=== PATIENT | female | born 1990 | race American Indian/Alaskan Native ===

== ENCOUNTER 2016-07-01 19:41 | Emergency (ER) | payer MEDICAID, OTHER ==
[2016-07-01 21:29] LABS: Hematocrit 38.7 % (30.3-42.9); Hemoglobin 12.5 gm/dl (10.1-14.3); Mean Corpuscular HGB Conc 32 % (30-34); Mean Corpuscular Volume 76 fl (79-97); Platelet Count 224 K/mm3 (140-440); White Blood Count 14.3 K/mm3 (4.5-11.0)
[2016-07-01 21:30] LABS: Mean Corpuscular Hemoglobin 25 pg (28-32)
[2016-07-01 21:45] LABS: Alanine Aminotransferase 9 units/L (7-56); Albumin 4.3 g/dL (3.9-5); Albumin/Globulin Ratio 1.7 %; Alkaline Phosphatase 93 units/L (35-129); Bilirubin,Total 0.3 mg/dL (0.1-1.2); Blood Urea Nitrogen 9 mg/dL (7-17); Carbon Dioxide 23 mmol/L (22-30); Chloride 99.6 mmol/L (98-107); Glucose 114 mg/dL (65-100); Lipase 43 units/L (13-60); Potassium 3.2 mmol/L (3.6-5.0); Sodium 138 mmol/L (137-145); Total Protein 6.8 g/dL (6.3-8.2)
[2016-07-01 21:46] LABS: Anion Gap 19 mmol/L
[2016-07-01 22:05] LABS: Anisocytosis 1+; Basophils % (Manual) 0 % (0.0-1.8); Blastocytes % (Manual) 0 %; Eosinophils % (Manual) 0 % (0.0-4.3); Total Cells Counted Percent 0
[2016-07-01 22:06] LABS: Elliptocytes 1+; Microcytosis 1+; Poikilocytosis Few
[2016-07-01 22:07] LABS: Diff Status Complete; Platelet Estimate Consistent w Auto
[2016-07-01 22:36] LABS: Bilirubin,Urine NEG (Negative); Blood,Urine NEG (Negative); Ketones,Urine TR mg/dL (Negative); Leukocyte Esterase,Urine MOD (Negative); Nitrite,Urine NEG (Negative); Protein,Urine <15 mg/dL mg/dL (Negative); Urobilinogen,Urine < 2.0 mg/dL (<2.0)
[2016-07-02] MEDS ORDERED: TYLENOL ONE (01:08)
[2016-07-02] MEDS ORDERED: TYLENOL PO ONE (01:09)
--- NOTE | 2016-07-02 07:39 | Emergency Department Report ---
ED Abdominal Pain HPI - General Chief Complaint: Abdominal Pain Stated Complaint: VOMITING,ABD PAIN, DIZZINESS,HEADACHE Time Seen by Provider: 07/02/16 07:37 Source: patient Mode of arrival: Ambulatory Limitations: No Limitations - History of Present Illness Initial Comments: She complains of left lower quadrant/pelvic pain on the left side for the past approximately one week. She states he's had her "normal white vaginal discharge ". 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 She does not give a history of PID. She denies fever chills nausea or vomiting. She denies diarrhea or change in her bowel movements or problems urinating. MD Complaint: abdominal pain -: Gradual Location: LLQ Radiation: none Severity: moderate Quality: cramping Consistency: intermittent Improves With: nothing Worsens With: other ("pressure on area") - Related Data Home Medications Medication Instructions Recorded Confirmed Last Taken Acetaminophen [Tylenol] 650 mg PO Q6HR PRN 11/09/14 11/14/14 1 Day Ago Ibuprofen [Motrin] 600 mg PO Q8H PRN 11/09/14 11/14/14 11/10/14 Previous Rx's Medication Instructions Recorded Last Taken Type Butalb/Acetamin/Caff 50-325-40 2 tab PO Q8H PRN #30 tablet 11/10/14 Unknown Rx [Fioricet] SUMAtriptan SUCCINATE [Imitrex] 100 mg PO DAILY PRN #9 tablet NS 11/10/14 Rx Topiramate [Topamax TAB] 25 mg PO BID #120 tablet NS 11/10/14 Unknown Rx NIFEdipine XL [Procardia Xl] 30 mg PO QDAY #30 tablet 11/14/14 Unknown Rx Doxycycline [Vibramycin CAP] 100 mg PO Q12HR #20 capsule 07/02/16 Unknown Rx traMADol [Ultram] 50 mg PO Q6HR PRN #14 tablet 07/02/16 Unknown Rx Allergies Allergy/AdvReac Type Severity Reaction Status Date / Time No Known Allergies Allergy Verified 10/16/14 16:25 ED Review of Systems ROS: Stated complaint: VOMITING,ABD PAIN, DIZZINESS,HEADACHE Other details as noted in HPI Constitutional: denies: chills, fever Eyes: denies: eye pain, eye discharge, vision change ENT: denies: ear pain, throat pain Respiratory: denies: cough, shortness of breath, wheezing Cardiovascular: denies: chest pain, palpitations Endocrine: no symptoms reported Gastrointestinal: abdominal pain. denies: nausea, diarrhea Genitourinary: discharge. denies: urgency, dysuria Musculoskeletal: denies: back pain, joint swelling, arthralgia Skin: denies: rash, lesions Neurological: denies: headache, weakness, paresthesias Psychiatric: denies: anxiety, depression Hematological/Lymphatic: denies: easy bleeding, easy bruising ED Past Medical Hx - Past Medical History Previous Medical History?: Yes Hx Hypertension: Yes (HTN during ) Hx Heart Attack/AMI: No Hx Congestive Heart Failure: No Hx Diabetes: No Hx Deep Vein Thrombosis: No Hx Renal Disease: No Hx Sickle Cell Disease: No Hx Seizures: No Hx Asthma: No Hx COPD: No Hx HIV: No - Surgical History Past Surgical History?: No - Social History Smoking Status: Never Smoker Substance Use Type: None - Medications Home Medications: Home Medications Medication Instructions Recorded Confirmed Last Taken Type Acetaminophen [Tylenol] 650 mg PO Q6HR PRN 11/09/14 11/14/14 1 Day Ago History Ibuprofen [Motrin] 600 mg PO Q8H PRN 11/09/14 11/14/14 11/10/14 History Butalb/Acetamin/Caff 50-325-40 2 tab PO Q8H PRN #30 tablet 11/10/14 11/14/14 Unknown Rx [Fioricet] SUMAtriptan SUCCINATE [Imitrex] 100 mg PO DAILY PRN #9 tablet NS 11/10/1411/10/14 Rx Topiramate [Topamax TAB] 25 mg PO BID #120 tablet NS 11/10/14 11/14/14 Unknown Rx NIFEdipine XL [Procardia Xl] 30 mg PO QDAY #30 tablet 11/14/14 Unknown Rx Doxycycline [Vibramycin CAP] 100 mg PO Q12HR #20 capsule 07/02/16 Unknown Rx traMADol [Ultram] 50 mg PO Q6HR PRN #14 tablet 07/02/16 Unknown Rx ED Physical Exam - General Limitations: No Limitations General appearance: alert, in no apparent distress - Head Head exam: Present: atraumatic, normocephalic - Eye Eye exam: Present: normal appearance. Absent: scleral icterus - ENT ENT exam: Present: normal exam, mucous membranes moist - Neck Neck exam: Present: normal inspection. Absent: tenderness, meningismus - Respiratory Respiratory exam: Present: normal lung sounds bilaterally. Absent: respiratory distress - Cardiovascular Cardiovascular Exam: Present: regular rate, normal rhythm. Absent: systolic murmur, diastolic murmur, rubs, gallop - GI/Abdominal GI/Abdominal exam: Present: soft, tenderness (mild discomfort to deep palpation in the left lower quadrant/pelvic region), normal bowel sounds. Absent: distended, guarding, rebound, rigid - Rectal Rectal exam: Present: deferred - External exam: Present: normal external exam Speculum exam: Present: vaginal discharge, cervical discharge Bi-manual exam: Present: adnexal tenderness (mild on the left). Absent: cervical motion tendernes, adnexal mass, uterine enlargement, uterine tenderness - Extremities Exam Extremities exam: Present: normal inspection, normal capillary refill - Back Exam Back exam: Present: normal inspection. Absent: CVA tenderness (R), CVA tenderness (L) - Neurological Exam Neurological exam: Present: alert, oriented X3, CN II-XII intact. Absent: motor sensory deficit - Psychiatric Psychiatric exam: Present: normal affect, normal mood - Skin Skin exam: Present: warm, dry, intact, normal color. Absent: rash ED Course Vital Signs 07/01/16 07/02/16 07/02/16 20:40 00:39 01:12 Temperature 100.3 F H 99.1 F Pulse Rate 93 H 102 H Respiratory 18 18 18 Rate Blood Pressure 109/75 Blood Pressure 153/70 [Right] O2 Sat by Pulse 100 100 Oximetry 07/02/16 07/02/16 07/02/16 04:39 07:42 07:49 Temperature 98.2 F Pulse Rate 110 H 93 H Respiratory 18 18 18 Rate Blood Pressure 128/72 Blood Pressure 117/93 [Right] O2 Sat by Pulse 100 80 L 99 Oximetry 07/02/16 07/02/16 08:00 10:35 Temperature Pulse Rate Respiratory Rate Blood Pressure 118/74 110/70 Blood Pressure [Right] O2 Sat by Pulse 100 Oximetry ED Medical Decision Making - Lab Data Result diagrams: 07/01/16 21:12 07/01/16 21:12 Laboratory Results - last 24 hr 07/01/16 07/01/16 07/01/16 21:12 21:12 22:02 WBC 14.3 H RBC 5.10 H Hgb 12.5 Hct 38.7 MCV 76 L MCH 25 L MCHC 32 RDW 14.0 Plt Count 224 Add Manual Diff Complete Total Counted 100 Seg Neutrophils % Scalp Treatment Operator Seg Neuts % (Manual) 84.0 H Band Neutrophils % 10.0 Lymphocytes % (Manual) 6.0 L Reactive Lymphs % (Man) 0 Monocytes % (Manual) 0 Eosinophils % (Manual) 0 Basophils % (Manual) 0 Metamyelocytes % 0 Myelocytes % 0 Promyelocytes % 0 Blast Cells % 0 Nucleated RBC % Not Reportable Seg Neutrophils # Man 12.0 H Band Neutrophils # 1.4 Lymphocytes # (Manual) 0.9 L Abs React Lymphs (Man) 0.0 Monocytes # (Manual) 0.0 Eosinophils # (Manual) 0.0 Basophils # (Manual) 0.0 Metamyelocytes # 0.0 Myelocytes # 0.0 Promyelocytes # 0.0 Blast Cells # 0.0 WBC Morphology Not Reportable Hypersegmented Neuts Not Reportable Hyposegmented Neuts Not Reportable Hypogranular Neuts Not Reportable Smudge Cells Not Reportable Toxic Granulation Not Reportable Toxic Vacuolation Not Reportable Dohle Bodies Not Reportable Pelger-Huet Anomaly Not Reportable Tanesha Rods Not Reportable Platelet Estimate Consistent w auto Clumped Platelets Not Reportable Plt Clumps, EDTA Not Reportable Large Platelets Not Reportable Giant Platelets Not Reportable Platelet Satelliting Not Reportable Plt Morphology Comment Not Reportable RBC Morphology Not Reportable Dimorphic RBCs Not Reportable Polychromasia Not Reportable Hypochromasia Not Reportable Poikilocytosis Few Anisocytosis 1+ Microcytosis 1+ Macrocytosis Not Reportable Spherocytes Not Reportable Pappenheimer Bodies Not Reportable Sickle Cells Not Reportable Target Cells Not Reportable Tear Drop Cells Not Reportable Ovalocytes Not Reportable Helmet Cells Not Reportable Quick-[place] Bodies Not Reportable [place] Rings Not Reportable [place] Cells Not Reportable Bite Cells Not Reportable Crenated Cell Not Reportable Elliptocytes 1+ Acanthocytes (Spur) Not Reportable Rouleaux Not Reportable Hemoglobin C Crystals Not Reportable Schistocytes Not Reportable Malaria parasites Not Reportable Adin Bodies Not Reportable Hem Pathologist Commnt No Sodium 138 Potassium 3.2 L Chloride 99.6 Carbon Dioxide 23 Anion Gap 19 BUN 9 Creatinine 0.5 L Estimated GFR > 60 BUN/Creatinine Ratio 18.00 Glucose 114 H Calcium 9.0 Total Bilirubin 0.3 AST 14 ALT 9 Alkaline Phosphatase 93 Total Protein 6.8 Albumin 4.3 Albumin/Globulin Ratio 1.7 Lipase 43 Urine Color Yellow Urine Turbidity Clear Urine pH 7.0 Ur Specific [place] 1.008 Urine Protein <15 mg/dl Urine Glucose (UA) Neg Urine Ketones Tr Urine Blood Neg Urine Nitrite Neg Urine Bilirubin Neg Urine Urobilinogen < 2.0 Ur Leukocyte Esterase Mod Urine WBC (Auto) 4.0 Urine RBC (Auto) 1.0 U Epithel Cells (Auto) 8.0 Urine HCG, Qual Negative - Radiology Data Radiology results: report reviewed interpreted by me: Ultrasound test without pelvic pathology seen Critical care attestation.: If time is entered above; I have spent that time in minutes in the direct care of this critically ill patient, excluding procedure time. ED Disposition Clinical Impression: PID (acute pelvic inflammatory disease) Disposition: DISCHARGED TO HOME OR SELFCARE Is pt being admited?: No Does the pt Need Aspirin: No Condition: Stable Instructions: Abdominal Pain (ED), Pelvic Inflammatory Disease (ED) Additional Instructions: Have appear to have a pelvic infection. However if your symptoms worsen or you develop fever or chills he should return to the emergency department. Otherwise Rx as directed and follow-up with a rheumatologist. Prescriptions: Doxycycline [Vibramycin CAP] 100 mg PO Q12HR #20 capsule traMADol [Ultram] 50 mg PO Q6HR PRN #14 tablet PRN Reason: Pain Referrals: PRIMARY MD MAGALI [Primary Care Provider] - 3-5 Days BECKA GLORIA MD [Staff Physician] - 24 Hours Time of Disposition: 12:17
[2016-07-02] MEDS ORDERED: NACL 0.9% 1000 ML 1,000 ML IV ONE (07:49)
[2016-07-02] MEDS ORDERED: ROCEPHIN/NS 1 GM/50 ML 50 ML IV ONE (07:49)
[2016-07-02] MEDS ORDERED: TORADOL IV ONE ×2 (07:52→10:25)
--- NOTE | 2016-07-02 09:36 | Ultrasound Report ---
ULTRASOUND PELVIC COMPLETE ULTRASOUND TRANSVAGINAL HISTORY: Left lower quadrant pain, left pelvic pain.. TECHNIQUE: Transabdominal and transvaginal ultrasound with color and spectral doppler interrogation. Longitudinal and transverse real-time images of the pelvis demonstrate that the uterus and ovaries are present and in a normal location. They are of normal echogenicity, contour and size. No pathologic changes in the adjacent tissues are noted. The endometrium measures 5.3 mm. Spectral Doppler demonstrates arterial flow to both ovaries. IMPRESSION: Unremarkable transabdominal and transvaginal pelvic ultrasounds.
[2016-07-02] MEDS ORDERED: TORADOL ONE (10:17)
[2016-07-02] MEDS ORDERED: ZITHROMAX PO ONE (10:28)
[2016-07-02] MEDS ORDERED: K-DUR PO ONE (10:44)
[2016-07-02] MEDS ORDERED: ZITHROMAX ONE (11:38)
[2016-07-02 12:48] VITALS: BP 120/89
== END 2016-07-02 12:48 | disposition home or self-care (01) ==
LOC: ED 19:41
DX: N73.0 Acute parametritis and pelvic cellulitis (principal)
CPT/HCPCS: 36415; 76830; 76856; 80053; 81001; 81025; 83690; 85007; 85025; 87210; 87591; 96365; 96375; 96376; 99285; J0696; J1885; J7030

== ENCOUNTER 2016-07-07 15:03 | Emergency (ER) | payer SELFPAY ==
--- NOTE | 2016-07-07 17:38 | Emergency Department Report ---
Chief Complaint: Abdominal Pain Stated Complaint: VAG BLEEDING/STOMACH BACK PAIN/VOMITING Time Seen by Provider: 07/07/16 17:35 - HPI History of Present Illness: Patient here reports that she was here on 07/01/2016 and diagnosed with PID. She is complaining or right flank and abdominal pain for approximately one week and that the pain is worse today. Denies any urinary burning frequency or urgency. She is complaining of vaginal bleeding since yesterday and says she used 5 pads and 5 tampons since today. Complaining nausea vomiting and diarrhea for a few days. She is complaining of feeling weak and dizzy. Denies any fever or chills. Pain to right flank is 10 out of 10. Last menstrual period was 05/20 2016 patient said that she doesn't think it's her. Because she doesn't usually bleeding this heavily with her period. - ROS Review of Systems: All systems are negative unless stated in HPI above. - Exam Vital Signs: Vital Signs 07/07/16 17:19 Temperature 98.0 F Pulse Rate 76 Respiratory 16 Rate Blood Pressure 114/80 O2 Sat by Pulse 100 Oximetry Physical Exam: General: This is a 25-year-old female well-nourished well-developed in no acute distress. CV: S1, S2. Regular rate and rhythm. Lungs: Clear to auscultate bilaterally, no rhonchi wheezes or rales MSE screening note: Focused history and physical exam performed. Due to findings the following was ordered:see mdm ED Medical Decision Making - Medical Decision Making Medical decision making: Patient seen by provider in triage area. Appropriate protocol activated and patient to main ED to be seen by physician. ED Disposition for MSE Condition: Stable Instructions: Abdominal Pain (ED)
[2016-07-07 19:00] LABS: Basophils % (Auto) 0.5 % (0.0-1.8); Eosinophils % (Auto) 0.4 % (0.0-4.3); Hemoglobin 12.8 gm/dl (10.1-14.3); Mean Corpuscular HGB Conc 32 % (30-34); Mean Corpuscular Volume 76 fl (79-97); Platelet Count 327 K/mm3 (140-440); Red Blood Count 5.27 M/mm3 (3.65-5.03); Red Cell Distribution Width 14.1 % (13.2-15.2); White Blood Count 9.9 K/mm3 (4.5-11.0)
[2016-07-07 19:03] LABS: Mean Corpuscular Hemoglobin 24 pg (28-32)
[2016-07-07 19:08] LABS: INR 1.07 (0.87-1.13)
[2016-07-07 19:14] LABS: Alanine Aminotransferase 12 units/L (7-56); Albumin 4.3 g/dL (3.9-5); Albumin/Globulin Ratio 1.3 %; Alkaline Phosphatase 94 units/L (35-129); Amylase 55 units/L (27-131); Anion Gap 16 mmol/L; Bilirubin,Total 0.3 mg/dL (0.1-1.2); Blood Urea Nitrogen 17 mg/dL (7-17); Calcium 9.3 mg/dL (8.4-10.2); Carbon Dioxide 27 mmol/L (22-30); Chloride 99.6 mmol/L (98-107); Glucose 90 mg/dL (65-100); Lipase 30 units/L (13-60); Sodium 139 mmol/L (137-145); Total Protein 7.7 g/dL (6.3-8.2)
[2016-07-07 19:16] LABS: Bilirubin,Direct < 0.2 mg/dL (0-0.2); Bilirubin,Indirect 0.1 mg/dL
--- NOTE | 2016-07-07 20:16 | Cat Scan Report ---
FINAL REPORT PROCEDURE: CT ABDOMEN PELVIS WO CON TECHNIQUE: Computerized axial tomography of the abdomen and pelvis was performed without intravenous contrast. This study is performed without intravascular contrast material and its sensitivity for abdominal and pelvic pathology, including neoplasms, inflammation, abscess, free fluid, thrombosis, arterial dissection and infarction, is reduced compared with a contrast enhanced study. HISTORY: Abdominal Pain COMPARISON: No prior studies are available for comparison. FINDINGS: Liver and spleen appear normal. Gallbladder and pancreas display no abnormalities. The adrenal glands and abdominal aorta are normal in size. No renal abnormality is seen. Normal appendix is seen. No adnexal masses are seen. There may be mild hemorrhagic free pelvic fluid and findings could be from recently ruptured cyst. Pelvic ultrasound may be useful in follow-up. There is moderate right-sided constipation. No small bowel dilation is seen. IMPRESSION: There may be mild hemorrhagic free fluid which could be from recently ruptured cyst. No adnexal masses are seen at this time. Correlation with pelvic ultrasound may be useful. Moderate right-sided constipation is seen.
[2016-07-07 20:58] LABS: Bilirubin,Urine NEG (Negative); Blood,Urine LG (Negative); Ketones,Urine NEG (Negative); Leukocyte Esterase,Urine NEG (Negative); Mucus,Urine 1+ /HPF; Nitrite,Urine NEG (Negative); Urobilinogen,Urine < 2.0 mg/dL (<2.0)
[2016-07-07 21:01] LABS: RBC,Urine > 182.0 /HPF (0.0-6.0)
[2016-07-08] MEDS ORDERED: NACL 0.9% 1000 ML 1,000 ML IV ONE (03:25)
[2016-07-08] MEDS ORDERED: MORPHINE IV ONE (03:25)
[2016-07-08] MEDS ORDERED: ZOFRAN IV ONE (03:25)
[2016-07-08] MEDS ORDERED: VALIUM IV ONE (03:25)
--- NOTE | 2016-07-08 03:39 | Emergency Department Report ---
HPI - General Chief Complaint: Abdominal Pain Time Seen by Provider: 07/07/16 17:35 - HPI HPI: The patient's 25-year-old female presents for evaluation of abdominal pain. The patient reports 2days of right lower abdominal pain, 10 out of 10 in severity, crampy and sharp in quality, radiating into the right flank. The patient denies fever, chills, night sweats, diarrhea, blood in the stool, dark tarry stool, dysuria, hematuria, genital discharge, inability to pass flatus. ED Past Medical Hx - Past Medical History Hx Hypertension: Yes (HTN during ) Hx Heart Attack/AMI: No Hx Congestive Heart Failure: No Hx Diabetes: No Hx Deep Vein Thrombosis: No Hx Renal Disease: No Hx Sickle Cell Disease: No Hx Seizures: No Hx Asthma: No Hx COPD: No Hx HIV: No - Social History Smoking Status: Never Smoker Substance Use Type: None - Medications Home Medications: Home Medications Medication Instructions Recorded Confirmed Last Taken Type Doxycycline [Vibramycin CAP] 100 mg PO Q12HR #20 capsule 07/02/16 07/08/1607/07 Rx traMADol [Ultram] 50 mg PO Q6HR PRN #14 tablet 07/02/16 07/08/16 07/07/16 Rx HYDROcodone/APAP 7.5-325 [[place] 1 each PO Q8HR PRN #12 tablet 07/08/16 Unknown Rx 7.5-325 mg TAB] Ondansetron [Zofran TAB] 4 mg PO Q8HR PRN #14 tablet 07/08/16 Unknown Rx ED Review of Systems ROS: Stated complaint: VAG BLEEDING/STOMACH BACK PAIN/VOMITING Other details as noted in HPI Constitutional: denies: fever ENT: denies: throat or neck pain Respiratory: denies: cough, shortness of breath Cardiovascular: denies: chest pain Endocrine: denies unexplained weight loss or gain Gastrointestinal: reports abdominal pain, nausea Genitourinary: denies: dysuria Musculoskeletal: denies: leg swelling Skin: denies: rash Neurological: denies: headache Hematological/Lymphatic: denies: easy bleeding or easy bruising Psych: denies sadness or hopelessness Physical Exam - Physical Exam Vital Signs: Vital Signs 07/07/16 07/08/16 07/08/16 17:19 00:28 01:38 Temperature 98.0 F 98.1 F Pulse Rate 76 73 Respiratory 16 18 Rate Blood Pressure 114/80 Blood Pressure 110/67 [Left] O2 Sat by Pulse 100 98 99 Oximetry 07/08/16 07/08/16 07/08/16 01:39 01:41 01:43 Temperature Pulse Rate 68 Respiratory 17 Rate Blood Pressure 121/87 Blood Pressure [Left] O2 Sat by Pulse 99 99 99 Oximetry 07/08/16 07/08/16 07/08/16 01:45 01:47 01:49 Temperature Pulse Rate 73 86 73 Respiratory 14 13 11 L Rate Blood Pressure 127/86 127/86 127/86 Blood Pressure [Left] O2 Sat by Pulse 91 99 Oximetry 07/08/16 07/08/16 07/08/16 01:51 01:53 01:55 Temperature Pulse Rate 73 74 73 Respiratory 15 15 12 Rate Blood Pressure 127/86 127/86 127/86 Blood Pressure [Left] O2 Sat by Pulse 99 99 98 Oximetry 07/08/16 07/08/16 07/08/16 01:56 01:57 02:03 Temperature 98.3 F Pulse Rate 78 Respiratory 20 16 Rate Blood Pressure 127/86 Blood Pressure [Left] O2 Sat by Pulse 100 99 Oximetry Physical Exam: General: well-nourished, well-developed, no acute distress Head: Normocephalic, atraumatic Eyes: normal sclera ENT: Mucous membranes are pink and moist Neck: trachea midline, neck supple, No neck stiffness, no cervical adenopathy Respiratory: Breath sounds equal bilaterally, no wheezing, rales, or rhonchi Cardio: S1 and S2 present, no murmurs, rubs, gallops, capillary refill is brisk Abdomen: Normoactive bowel sounds, soft abdomen, bilateral lower quad abdominal pain present, no rigidity, no guarding or rebound tenderness Musc: No pitting edema Skin: No rash Neuro: no facial drooping, normal speech Psych: Normal affect ED Course Vital Signs 07/07/16 07/08/16 07/08/16 17:19 00:28 01:38 Temperature 98.0 F 98.1 F Pulse Rate 76 73 Respiratory 16 18 Rate Blood Pressure 114/80 Blood Pressure 110/67 [Left] O2 Sat by Pulse 100 98 99 Oximetry 07/08/16 07/08/16 07/08/16 01:39 01:41 01:43 Temperature Pulse Rate 68 Respiratory 17 Rate Blood Pressure 121/87 Blood Pressure [Left] O2 Sat by Pulse 99 99 99 Oximetry 07/08/16 07/08/16 07/08/16 01:45 01:47 01:49 Temperature Pulse Rate 73 86 73 Respiratory 14 13 11 L Rate Blood Pressure 127/86 127/86 127/86 Blood Pressure [Left] O2 Sat by Pulse 91 99 Oximetry 07/08/16 07/08/16 07/08/16 01:51 01:53 01:55 Temperature Pulse Rate 73 74 73 Respiratory 15 15 12 Rate Blood Pressure 127/86 127/86 127/86 Blood Pressure [Left] O2 Sat by Pulse 99 99 98 Oximetry 07/08/16 07/08/16 07/08/16 01:56 01:57 02:03 Temperature 98.3 F Pulse Rate 78 Respiratory 20 16 Rate Blood Pressure 127/86 Blood Pressure [Left] O2 Sat by Pulse 100 99 Oximetry ED Medical Decision Making - Lab Data Result diagrams: 07/07/16 18:30 07/07/16 18:30 - Medical Decision Making The patient was seen and examined by myself. The patient is placed on a monitor and storage bin tender and continuous pulse ox. On initial evaluation, the patient was found to be in no distress. Evaluation orders are placed. IV access is established and the patient is given 1 L normal saline fluid bolus, Zofran for nausea, and IV morphine for pain. Lab results were non-concerning including WBC , hemoglobin, hematocrit, electrolytes, renal function, LFTs, lipase, urinalysis , and neg preg test. CAT scan of the abdomen revealed a mild amount of pelvic fluid suggestive of a recently ruptured ovarian cyst. CAT scan was negative for kidney stones, appendicitis, bowel perforation or obstruction, or adnexal mass. The patient was reevaluated and reported that their symptoms were markedly improved. The patient is stable for discharge with outpatient follow- up. The patient is given follow-up and return instructions. The patient expressed understanding and agreed with the plan. The patient is discharged in stable condition. Critical care attestation.: If time is entered above; I have spent that time in minutes in the direct care of this critically ill patient, excluding procedure time. ED Disposition Clinical Impression: Acute abdominal pain in right lower quadrant Disposition: DISCHARGED TO HOME OR SELFCARE Is pt being admited?: No Does the pt Need Aspirin: No Condition: Stable Instructions: Abdominal Pain (ED), Ovarian Cyst (ED) Referrals: PRIMARY CARE, [Primary Care Provider] - 3-5 Days [facility] [Provider Group] - 3-5 Days Time of Disposition: 03:09
[2016-07-08 06:47] VITALS: BP 108/70
[2016-07-08] MEDS ORDERED: ZOFRAN ODT PO ONE (06:55)
[2016-07-08] MEDS ORDERED: ZOFRAN ODT ONE (06:56)
== END 2016-07-08 07:26 | disposition home or self-care (01) ==
LOC: ED 15:03
DX: R10.31 Right lower quadrant pain (principal)
CPT/HCPCS: 36415; 74176; 80048; 80074; 81001; 82150; 83690; 84703; 85025; 85610; 86850; 86900; 86901; 96361; 96374; 96375; 99284; J2270; J2405; J3360; J7030; Q0162

== ENCOUNTER 2017-07-20 07:49 | Emergency (ER) | payer MEDICAID ==
[2017-07-20] MEDS ORDERED: BENADRYL IV ONE (08:57)
[2017-07-20] MEDS ORDERED: NACL 0.9% 500 ML 500 ML IV ONE (08:57)
[2017-07-20] MEDS ORDERED: REGLAN IV ONE (08:57)
--- NOTE | 2017-07-20 08:57 | Emergency Department Report ---
ED Headache HPI - General Chief Complaint: Headache Stated Complaint: FLU LIKE SYMPTOMS Time Seen by Provider: 07/20/17 08:45 - History of Present Illness Initial Comments: 26-year-old female past medical history of migraine headaches presents with complaint one day of migraine headache. Some associated nausea. Patient denies fevers chills abdominal pain chest pain shortness of breath. Denies any photo or phonophobia denies any neck rigidity. Patient is awake alert and oriented 3. States headache is currently 8 out of 10. Denies any head trauma. Timing/Duration: 24 hours, increasing Quality: severe, achy Head Injury Location: frontal Recent Head Trauma: no recent headache/trauma Modifying Factors: improves with: cold therapy Associated Symptoms: nausea/vomiting Allergies/Adverse Reactions: Allergies No Known Allergies Allergy (Verified 07/20/17 08:11) Home Medications: Ambulatory Orders Doxycycline [Vibramycin CAP] 100 mg PO Q12HR #20 capsule 07/02/16 traMADol [Ultram] 50 mg PO Q6HR PRN #14 tablet 07/02/16 HYDROcodone/APAP 7.5-325 [[place] 7.5-325 mg TAB] 1 each PO Q8HR PRN #12 tablet Ondansetron [Zofran TAB] 4 mg PO Q8HR PRN #14 tablet 07/08/16 Metoclopramide HCl [Reglan TAB] 5 mg PO TIDAC PRN #12 tablet 07/20/17 Naproxen [Naprosyn TAB] 500 mg PO BID PRN #30 tablet 07/20/17 ED Review of Systems ROS: Stated complaint: FLU LIKE SYMPTOMS Other details as noted in HPI Constitutional: denies: chills, fever Eyes: denies: eye pain, eye discharge, vision change ENT: denies: ear pain, throat pain Respiratory: denies: cough, shortness of breath, wheezing Cardiovascular: denies: chest pain, palpitations Endocrine: no symptoms reported Gastrointestinal: denies: abdominal pain, nausea, diarrhea Genitourinary: denies: urgency, dysuria, discharge Musculoskeletal: denies: back pain, joint swelling, arthralgia Skin: denies: rash, lesions Neurological: headache. denies: weakness, paresthesias Psychiatric: denies: anxiety, depression Hematological/Lymphatic: denies: easy bleeding, easy bruising ED Past Medical Hx - Past Medical History Hx Hypertension: Yes (HTN during ) Hx Heart Attack/AMI: No Hx Congestive Heart Failure: No Hx Diabetes: No Hx Deep Vein Thrombosis: No Hx Renal Disease: No Hx Sickle Cell Disease: No Hx Seizures: No Hx Asthma: No Hx COPD: No Hx HIV: No - Surgical History Past Surgical History?: No - Social History Smoking Status: Never Smoker Substance Use Type: None - Medications Home Medications: Home Medications Medication Instructions Recorded Confirmed Last Taken Type Doxycycline [Vibramycin CAP] 100 mg PO Q12HR #20 capsule 07/02/16 07/08/1607/07 Rx traMADol [Ultram] 50 mg PO Q6HR PRN #14 tablet 07/02/16 07/08/16 07/07/16 Rx HYDROcodone/APAP 7.5-325 [[place] 1 each PO Q8HR PRN #12 tablet 07/08/16 Unknown Rx 7.5-325 mg TAB] Ondansetron [Zofran TAB] 4 mg PO Q8HR PRN #14 tablet 07/08/16 Unknown Rx Metoclopramide HCl [Reglan TAB] 5 mg PO TIDAC PRN #12 tablet 07/20/17 Unknown Rx Naproxen [Naprosyn TAB] 500 mg PO BID PRN #30 tablet 07/20/17 Unknown Rx ED Physical Exam - General Limitations: No Limitations General appearance: alert, in no apparent distress - Head Head exam: Present: atraumatic, normocephalic - Eye Eye exam: Present: normal appearance, PERRL, EOMI - ENT ENT exam: Present: mucous membranes moist - Neck Neck exam: Present: normal inspection - Respiratory Respiratory exam: Present: normal lung sounds bilaterally. Absent: respiratory distress - Cardiovascular Cardiovascular Exam: Present: regular rate, normal rhythm. Absent: systolic murmur, diastolic murmur, rubs, gallop - GI/Abdominal GI/Abdominal exam: Present: soft, normal bowel sounds - Extremities Exam Extremities exam: Present: normal inspection - Back Exam Back exam: Present: normal inspection - Neurological Exam Neurological exam: Present: alert, oriented X3, CN II-XII intact, normal gait - Expanded Neurological Exam Expanded Patient oriented to: Present: person, place, time Cranial nerves: EOM's Intact: Normal, Facial Sensation: Normal Cerebellar function: Finger to Nose: Normal, Heel to Dave: Normal, Romberg: Normal Sensory exam: Upper Extremity Light Touch: Normal, Lower Extremity Light Touch: Normal Motor strength exam: RUE: 5, LUE: 5, RLE: 5, LLE: 5 DTR: tricep (R): 3+, tricep (L): 3+, knee (R): 3+, knee (L): 3+ Best Eye Response ([place]): (4) open spontaneously Best Motor Response ([place]): (6) obeys commands Best Verbal Response ([place]): (5) oriented [place] Total: 15 - Psychiatric Psychiatric exam: Present: normal affect, normal mood - Skin Skin exam: Present: warm, dry, intact, normal color. Absent: rash ED Course Vital Signs 07/20/17 08:11 Temperature 98 F Pulse Rate 87 Respiratory 18 Rate Blood Pressure 137/95 O2 Sat by Pulse 100 Oximetry ED Medical Decision Making - Medical Decision Making A/P: Migraine headache 1-significant reduction of headache achieved with IV Reglan. Patient feels significantly better than when I first spoke to her. Headache currently 2 out of 10. 2-naproxen when necessary, short course Reglan when necessary 3-follow up with primary care and neurology for history of migraine headaches. 4-urine unremarkable, CT head unremarkable. Critical care attestation.: If time is entered above; I have spent that time in minutes in the direct care of this critically ill patient, excluding procedure time. ED Disposition Clinical Impression: Headache Qualifiers: Headache type: tension-type Headache chronicity pattern: acute headache Intractability: not intractable Qualified Code(s): G44.209 - Tension-type headache, unspecified, not intractable Disposition: DC-01 TO HOME OR SELFCARE Is pt being admited?: No Does the pt Need Aspirin: No Condition: Stable Instructions: Migraine Headache (ED), Acute Headache (ED) Prescriptions: Metoclopramide HCl [Reglan TAB] 5 mg PO TIDAC PRN #12 tablet PRN Reason: Headache Naproxen [Naprosyn TAB] 500 mg PO BID PRN #30 tablet PRN Reason: Headache Referrals: [facility] [Outside] - 3-5 Days [facility] [Outside] - 3-5 Days Forms: Work/School Release Form(ED) Time of Disposition: 11:03
[2017-07-20 09:48] LABS: Amorphous Crystals,Urine 1+; Bacteria,Urine 1+ /HPF (Negative); Bilirubin,Urine NEG (Negative); Blood,Urine NEG (Negative); Color,Urine Yellow (Yellow); Mucus,Urine FEW /HPF; Nitrite,Urine NEG (Negative); Urobilinogen,Urine < 2.0 mg/dL (<2.0)
[2017-07-20 09:53] LABS: Amphetamine Screen,Urine PRESUMPTIVE NEGATIVE; Benzodiazepines Screen,Urine PRESUMPTIVE NEGATIVE; Cannabinoid Screen,Urine PRESUMPTIVE NEGATIVE; Cocaine Screen,Urine PRESUMPTIVE NEGATIVE; Methadone Screen,Urine PRESUMPTIVE NEGATIVE; Opiate Screen,Urine PRESUMPTIVE NEGATIVE
[2017-07-20 09:54] LABS: HCG Qualitative,Urine Negative (Negative)
--- NOTE | 2017-07-20 10:36 | Cat Scan Report ---
CT HEAD WITHOUT CONTRAST: HISTORY: headache. TECHNIQUE: Sequential 2.5mm CT images. COMPARISON: none. FINDINGS: Cerebral Parenchyma: Within normal limits. Cerebellum: Within normal limits. Brainstem: Within normal limits. Ventricles: Normal. Sella: Normal. Extra-axial spaces: Normal. Basal Cisterns: Normal. Intracranial Hemorrhage: None. Midline Shift: None. Calvarium: Normal. Sinuses: Normal. Mastoid Air Cells: Normal. Visualized Orbits: Normal. IMPRESSION: Cranial CT scan within normal limits.
[2017-07-20 11:24] VITALS: BP 112/72
== END 2017-07-20 11:25 | disposition home or self-care (01) ==
LOC: ED 07:49
DX: G44.209 Tension-type headache, unspecified, not intractable (principal)
CPT/HCPCS: 70450; 80307; 81001; 81025; 87086; 96374; 96375; 99284; J1200; J2765; J7040; 87076; 87186

== ENCOUNTER 2017-09-23 08:53 | Emergency (ER) | payer MEDICAID ==
[2017-09-23 09:15] VITALS: BP 107/69
[2017-09-23 09:57] LABS: Alanine Aminotransferase 7 units/L (7-56); Albumin 3.8 g/dL (3.9-5); BUN/Creatinine Ratio 20; Blood Urea Nitrogen 12 mg/dL (7-17); Calcium 8.9 mg/dL (8.4-10.2); Hemolysis Index 19
[2017-09-23 10:21] LABS: Basophils % (Auto) 0.5 % (0.0-1.8); Eosinophils # (Auto) 0.1 K/mm3 (0.0-0.4); Eosinophils % (Auto) 1.4 % (0.0-4.3); Hematocrit 39.1 % (30.3-42.9); Hemoglobin 12.6 gm/dl (10.1-14.3); Lymphocytes # (Auto) 1.9 K/mm3 (1.2-5.4); Lymphocytes % (Auto) 30.5 % (13.4-35.0); Mean Corpuscular HGB Conc 32 % (30-34); Mean Corpuscular Volume 78 fl (79-97); Monocytes # (Auto) 0.4 K/mm3 (0.0-0.8); Monocytes % (Auto) 6.3 % (0.0-7.3); Platelet Count 231 K/mm3 (140-440); Red Cell Distribution Width 14.5 % (13.2-15.2)
[2017-09-23 10:22] LABS: Mean Corpuscular Hemoglobin 25 pg (28-32)
--- NOTE | 2017-09-23 10:39 | Emergency Department Report ---
ED Abdominal Pain HPI - General Chief Complaint: Abdominal Pain Stated Complaint: LOWER ABD AND BACK PAIN Time Seen by Provider: 09/23/17 10:15 Source: patient Mode of arrival: Ambulatory Limitations: No Limitations - History of Present Illness Initial Comments: Condition is a 26-year-old female that presents to the emergency room with complaints of lower back pain and bilateral lower abdominal pain 3 days. Patient also complains of intermittent fevers. Patient states that the pain is worsening. Patient states the pain is a 8 out of 10. Patient describes the pain as intermittent stabbing pain. Patient denies dysuria. Patient denies vaginal discharge. Patient denies chest pain shortness of breath. Patient states she has taken ibuprofen and Tylenol for the fevers and has worked. Patient states she was in [place] for viral meningitis for 12 days and was discharged on 08/20/2017. Patient denies headache. Patient denies visual changes. Patient denies neck pain. MD Complaint: abdominal pain -: Sudden Location: LLQ, RLQ, suprapubic Radiation: none Migration to: no migration Severity: moderate, severe Quality: cramping, stabbing Consistency: intermittent (but becoming more frequent) Improves With: rest Worsens With: movement Associated Symptoms: denies other symptoms, fever. denies: nausea, vomiting, diarrhea, chills, constipation, dysuria, hematemesis, hematochezia, melena, hematuria, anorexia, syncope - Related Data Previous Rx's Medication Instructions Recorded Last Taken Type Doxycycline [Vibramycin CAP] 100 mg PO Q12HR #20 capsule 07/02/16 07/07/16 Rx traMADol [Ultram] 50 mg PO Q6HR PRN #14 tablet 07/02/16 07/07/16 Rx HYDROcodone/APAP 7.5-325 [Jessie 1 each PO Q8HR PRN #12 tablet 07/08/16 Unknown Rx 7.5-325 mg TAB] Ondansetron [Zofran TAB] 4 mg PO Q8HR PRN #14 tablet 07/08/16 Unknown Rx Metoclopramide HCl [Reglan TAB] 5 mg PO TIDAC PRN #12 tablet 07/20/17 Unknown Rx Naproxen [Naprosyn TAB] 500 mg PO BID PRN #30 tablet 07/20/17 Unknown Rx Ciprofloxacin HCl [Cipro] 500 mg PO Q12HR 10 Days #20 tablet 09/23/17 Unknown Rx Allergies Allergy/AdvReac Type Severity Reaction Status Date / Time unknown antibiotic Allergy Rash Uncoded 09/23/17 09:15 ED Review of Systems ROS: Stated complaint: LOWER ABD AND BACK PAIN Other details as noted in HPI Comment: All other systems reviewed and negative Constitutional: fever. denies: chills Eyes: denies: eye pain, eye discharge, vision change ENT: denies: ear pain, throat pain Respiratory: denies: cough, shortness of breath, wheezing Cardiovascular: denies: chest pain, palpitations Endocrine: no symptoms reported Gastrointestinal: abdominal pain. denies: nausea, diarrhea Genitourinary: denies: urgency, dysuria, discharge Musculoskeletal: denies: back pain, joint swelling, arthralgia Skin: denies: rash, lesions Neurological: denies: headache, weakness, paresthesias Psychiatric: denies: anxiety, depression Hematological/Lymphatic: denies: easy bleeding, easy bruising ED Past Medical Hx - Past Medical History Previous Medical History?: Yes Hx Hypertension: Yes (HTN during ) Hx Heart Attack/AMI: No Hx Congestive Heart Failure: No Hx Diabetes: No Hx Deep Vein Thrombosis: No Hx Renal Disease: No Hx Sickle Cell Disease: No Hx Seizures: No Hx Asthma: No Hx COPD: No Hx HIV: No Additional medical history: Viral meningitis - Surgical History Past Surgical History?: Yes Additional Surgical History: Lumbar puncture - Family History Family history: no significant - Social History Smoking Status: Never Smoker Substance Use Type: None - Medications Home Medications: Home Medications Medication Instructions Recorded Confirmed Last Taken Type Doxycycline [Vibramycin CAP] 100 mg PO Q12HR #20 capsule 07/02/16 07/08/1607/07 Rx traMADol [Ultram] 50 mg PO Q6HR PRN #14 tablet 07/02/16 07/08/16 07/07/16 Rx HYDROcodone/APAP 7.5-325 [Jessie 1 each PO Q8HR PRN #12 tablet 07/08/16 Unknown Rx 7.5-325 mg TAB] Ondansetron [Zofran TAB] 4 mg PO Q8HR PRN #14 tablet 07/08/16 Unknown Rx Metoclopramide HCl [Reglan TAB] 5 mg PO TIDAC PRN #12 tablet 07/20/17 Unknown Rx Naproxen [Naprosyn TAB] 500 mg PO BID PRN #30 tablet 07/20/17 Unknown Rx Ciprofloxacin HCl [Cipro] 500 mg PO Q12HR 10 Days #20 tablet 09/23/17 Unknown Rx ED Physical Exam - General Limitations: No Limitations General appearance: alert, in no apparent distress - Head Head exam: Present: atraumatic, normocephalic - Eye Eye exam: Present: normal appearance - ENT ENT exam: Present: mucous membranes moist - Neck Neck exam: Present: normal inspection - Respiratory Respiratory exam: Present: normal lung sounds bilaterally. Absent: respiratory distress - Cardiovascular Cardiovascular Exam: Present: regular rate, normal rhythm. Absent: systolic murmur, diastolic murmur, rubs, gallop - GI/Abdominal GI/Abdominal exam: Present: soft, tenderness (suprapubic tenderness), normal bowel sounds - Extremities Exam Extremities exam: Present: normal inspection, full ROM - Back Exam Back exam: Present: normal inspection, full ROM. Absent: tenderness, CVA tenderness (R), CVA tenderness (L), muscle spasm, paraspinal tenderness, vertebral tenderness, rash noted - Neurological Exam Neurological exam: Present: alert, oriented X3, CN II-XII intact, normal gait, reflexes normal. Absent: motor sensory deficit - Psychiatric Psychiatric exam: Present: normal affect, normal mood - Skin Skin exam: Present: warm, dry, intact, normal color. Absent: rash ED Course Vital Signs 09/23/17 09:09 Temperature 98.7 F Pulse Rate 68 Respiratory 16 Rate Blood Pressure 107/69 O2 Sat by Pulse 99 Oximetry - Reevaluation(s) Reevaluation #1: Discussed all results with patient. Patient stable for discharge. We'll send patient home with appropriate treatment. 09/23/17 12:25 ED Medical Decision Making - Lab Data Result diagrams: 09/23/17 09:20 09/23/17 09:20 - Radiology Data Radiology results: report reviewed No acute findings on CT scan of abdomen and pelvis - Medical Decision Making She has 26-year-old female that presents emergency room with complaints of abdominal pain. 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 She is stable for discharge. Will discharge patient home with appropriate discharge instructions. - Differential Diagnosis abdominal pain. UTI. Gastroenteritis. Critical care attestation.: If time is entered above; I have spent that time in minutes in the direct care of this critically ill patient, excluding procedure time. ED Disposition Clinical Impression: Abdominal pain, UTI (urinary tract infection) Disposition: - TO HOME OR SELFCARE Is pt being admited?: No Does the pt Need Aspirin: No Condition: Stable Instructions: Urinary Tract Infection in Women (ED), Abdominal Pain (ED) Additional Instructions: Follow-up with primary care in 3-5 days. Patient increase water. Patient to take meds as directed. Patient to take Tylenol or ibuprofen when necessary for pain. Patient to return to ER if condition worsens.. Prescriptions: Ciprofloxacin HCl [Cipro] 500 mg PO Q12HR 10 Days #20 tablet Referrals: PRIMARY CARE, [Referring] - 3-5 Days Time of Disposition: 12:30
[2017-09-23 10:49] LABS: Bacteria,Urine 1+ /HPF (Negative); Bilirubin,Urine NEG (Negative); Blood,Urine MOD (Negative); Color,Urine Yellow (Yellow); Mucus,Urine 2+ /HPF; Protein,Urine <15 mg/dL mg/dL (Negative); Urobilinogen,Urine < 2.0 mg/dL (<2.0)
[2017-09-23 10:50] LABS: HCG Qualitative,Urine Negative (Negative)
--- NOTE | 2017-09-23 12:18 | Cat Scan Report ---
CT ABDOMEN PELVIS WITH AND WITHOUT CONTRAST: HISTORY: abdominal pain. COMPARISON: 07/07/16. TECHNIQUE: Helical CT in 1.25mm intervals before and after IV contrast. Sagittal and coronal reconstructions. FINDINGS: Lung bases: Normal. Liver: Normal. Biliary system: Normal. Pancreas: Normal. Spleen: Normal. Kidneys/ureters/bladder: Normal. Adrenal glands: Normal. Aorta: Normal. Intestines: Normal. Appendix: Normal. Pelvic viscera: Normal. Ascites: None. Adenopathy: None. Musculoskeletal: Normal. IMPRESSION: Unremarkable CT scan of the abdomen and pelvis with and without contrast.
== END 2017-09-23 12:52 | disposition home or self-care (01) ==
LOC: ED 08:53
DX: N39.0 Urinary tract infection, site not specified (principal); I10 Essential (primary) hypertension; R10.30 Lower abdominal pain, unspecified
CPT/HCPCS: 36415; 74178; 80053; 81001; 81025; 85025; 99284; Q9967

== ENCOUNTER 2019-05-09 08:50 | Emergency (ER) | payer SELFPAY ==
[2019-05-09 09:56] LABS: Bilirubin,Urine NEG (Negative); Blood,Urine NEG (Negative); Color,Urine Yellow (Yellow); Mucus,Urine 3+ /HPF; Urobilinogen,Urine < 2.0 mg/dL (<2.0)
[2019-05-09 09:58] LABS: Basophils % (Auto) 0.4 % (0.0-1.8); Eosinophils # (Auto) 0.1 K/mm3 (0.0-0.4); Eosinophils % (Auto) 0.7 % (0.0-4.3); Hematocrit 40.7 % (30.3-42.9); Lymphocytes # (Auto) 2.3 K/mm3 (1.2-5.4); Mean Corpuscular HGB Conc 32 % (30-34); Mean Corpuscular Volume 78 fl (79-97); Monocytes # (Auto) 0.3 K/mm3 (0.0-0.8); Monocytes % (Auto) 3.8 % (0.0-7.3); Platelet Count 238 K/mm3 (140-440); Red Blood Count 5.21 M/mm3 (3.65-5.03); Red Cell Distribution Width 14.5 % (13.2-15.2)
--- NOTE | 2019-05-09 10:13 | Emergency Department Report ---
ED Abdominal Pain HPI - General Chief Complaint: Abdominal Pain Stated Complaint: LOWER BACK PAIN/UNABLE TO USE THE BATHROOM Time Seen by Provider: 05/09/19 10:09 Source: patient Mode of arrival: Ambulatory Limitations: No Limitations - History of Present Illness Initial Comments: Patient is a 28-year-old female that presents to the Emergency room with complaints of abdominal pain 3 days. Patient states not have a bowel movement to 2 weeks. Patient states she's had a long history of chronic idiopathic constipation. Patient states she's never seen a specialist for she says dealt with it. Patient states she is now having nausea and vomiting and severe lower abdominal pain. Patient states it's in the bilateral lower abdominal region and is a 10 out of 10. Patient states the pain is better with rest and worse with movement and palpation. Patient states for her constipation is taken multiple [id number] medications with no results. Patient denies diarrhea. Patient denies blood in her vomitus. Patient denies fever and chills. Patient states she is on Depo-Provera. Patient states she is on her cycle now MD Complaint: abdominal pain -: Sudden Location: LLQ, RLQ, suprapubic Radiation: none Migration to: no migration Severity: severe Severity scale (0 -10): 10 Quality: stabbing Consistency: constant Improves With: rest Worsens With: movement, other Associated Symptoms: nausea, vomiting, constipation. denies: diarrhea, fever, chills, dysuria, hematemesis, hematochezia, melena, hematuria, anorexia - Related Data Previous Rx's Medication Instructions Recorded Last Taken Type DOXYCYCLINE Hyclate [Vibramycin 100 mg PO Q12HR #20 capsule 07/02/16 07/07/16 Rx CAP] traMADoL [Ultram] 50 mg PO Q6HR PRN #14 tablet 07/02/16 07/07/16 Rx HYDROcodone/APAP 7.5-325 [[place] 1 each PO Q8HR PRN #12 tablet 07/08/16 Unknown Rx 7.5-325 mg TAB] Ondansetron [Zofran TAB] 4 mg PO Q8HR PRN #14 tablet 07/08/16 Unknown Rx Metoclopramide HCl [Reglan TAB] 5 mg PO TIDAC PRN #12 tablet 07/20/17 Unknown Rx Naproxen [Naprosyn TAB] 500 mg PO BID PRN #30 tablet 07/20/17 Unknown Rx Ciprofloxacin HCl [Cipro] 500 mg PO Q12HR 10 Days #20 tablet 09/23/17 Unknown Rx Magnesium Citrate [Citrate of 300 ml PO NOW #1 bottle 05/09/19 Unknown Rx Magnesia] Ondansetron [Zofran Odt] 4 mg PO Q8HR PRN #20 tab.rapdis 05/09/19 Unknown Rx Sennosides/Docusate Sodium [Senna 1 each PO BID #30 capsule 05/09/19 Unknown Rx Plus 8.6-50 mg Softgel] Allergies Allergy/AdvReac Type Severity Reaction Status Date / Time unknown antibiotic Allergy Rash Uncoded 05/09/19 08:52 ED Review of Systems ROS: Stated complaint: LOWER BACK PAIN/UNABLE TO USE THE BATHROOM Other details as noted in HPI Constitutional: denies: chills, fever Eyes: denies: eye pain, eye discharge, vision change ENT: denies: ear pain, throat pain Respiratory: denies: cough, shortness of breath, wheezing Cardiovascular: denies: chest pain, palpitations Endocrine: no symptoms reported Gastrointestinal: abdominal pain, nausea, vomiting, constipation. denies: d iarrhea Genitourinary: denies: urgency, dysuria, discharge Musculoskeletal: denies: back pain, joint swelling, arthralgia Skin: denies: rash, lesions Neurological: denies: headache, weakness, paresthesias Psychiatric: denies: anxiety, depression Hematological/Lymphatic: denies: easy bleeding, easy bruising ED Past Medical Hx - Past Medical History Previous Medical History?: Yes Hx Hypertension: Yes (HTN during ) Hx Heart Attack/AMI: No Hx Congestive Heart Failure: No Hx Diabetes: No Hx Deep Vein Thrombosis: No Hx Renal Disease: No Hx Sickle Cell Disease: No Hx Seizures: No Hx Asthma: No Hx COPD: No Hx HIV: No Additional medical history: Viral meningitis - Surgical History Past Surgical History?: Yes Additional Surgical History: Lumbar puncture - Family History Family history: no significant - Social History Smoking Status: Never Smoker Substance Use Type: None - Medications Home Medications: Home Medications Medication Instructions Recorded Confirmed Last Taken Type DOXYCYCLINE Hyclate [Vibramycin 100 mg PO Q12HR #20 capsule 07/02/16 07/08/16 07/07/16 Rx CAP] traMADoL [Ultram] 50 mg PO Q6HR PRN #14 tablet 07/02/16 07/08/16 07/07/16 Rx HYDROcodone/APAP 7.5-325 [[place] 1 each PO Q8HR PRN #12 tablet 07/08/16 Unknown Rx 7.5-325 mg TAB] Ondansetron [Zofran TAB] 4 mg PO Q8HR PRN #14 tablet 07/08/16 Unknown Rx Metoclopramide HCl [Reglan TAB] 5 mg PO TIDAC PRN #12 tablet 07/20/17 Unknown Rx Naproxen [Naprosyn TAB] 500 mg PO BID PRN #30 tablet 07/20/17 Unknown Rx Ciprofloxacin HCl [Cipro] 500 mg PO Q12HR 10 Days #20 tablet 09/23/17 Unknown Rx Magnesium Citrate [Citrate of 300 ml PO NOW #1 bottle 05/09/19 Unknown Rx Magnesia] Ondansetron [Zofran Odt] 4 mg PO Q8HR PRN #20 tab.rapdis 05/09/19 Unknown Rx Sennosides/Docusate Sodium [Senna 1 each PO BID #30 capsule 05/09/19 Unknown Rx Plus 8.6-50 mg Softgel] ED Physical Exam - General Limitations: No Limitations General appearance: alert, in no apparent distress - Head Head exam: Present: atraumatic, normocephalic - Eye Eye exam: Present: normal appearance - ENT ENT exam: Present: mucous membranes moist - Neck Neck exam: Present: normal inspection - Respiratory Respiratory exam: Present: normal lung sounds bilaterally. Absent: respiratory distress, wheezes (probably frustrated with), rales - Cardiovascular Cardiovascular Exam: Present: regular rate, normal rhythm. Absent: systolic murmur, diastolic murmur, rubs, gallop - GI/Abdominal GI/Abdominal exam: Present: soft, tenderness ( Right and left lower quadrant tenderness to palpation.), normal bowel sounds. Absent: distended, guarding - Extremities Exam Extremities exam: Present: normal inspection - Back Exam Back exam: Present: normal inspection - Neurological Exam Neurological exam: Present: alert, oriented X3 - Psychiatric Psychiatric exam: Present: normal affect, normal mood - Skin Skin exam: Present: warm, dry, intact, normal color. Absent: rash ED Course Vital Signs 05/09/19 05/09/19 08:53 14:10 Temperature 98.7 F Pulse Rate 84 86 Respiratory 16 18 Rate Blood Pressure 109/82 Blood Pressure 117/82 [Left] O2 Sat by Pulse 99 98 Oximetry - Reevaluation(s) Reevaluation #1: I discussed all results with patient. I discussed plan of care with patient. Patient is stable for discharge. Patient will be discharged home. Patient agrees with plan of care. I discussed discharge instructions with patient. Patient voiced understanding of discharge instructions. 05/09/19 13:37 ED Medical Decision Making - Lab Data Result diagrams: 05/09/19 09:22 05/09/19 09:22 - Radiology Data Radiology results: report reviewed CT ABDOMEN AND PELVIS WITH CONTRAST HISTORY: abd pain. constipation and n/v. COMPARISON: None. TECHNIQUE: CT images of the abdomen and pelvis were obtained following administration of intravenous contrast. All CT scans at this location are performed using CT dose reduction for ALARA by means of automated exposure control. CONTRAST: 100 ml of intravenous contrast administered. FINDINGS: Lungs/bones: Lung bases are clear. No acute osseous abnormality. Abdomen/pelvis: The liver, gallbladder, spleen, pancreas, adrenals, kidneys, and proximal GI tract appear unremarkable. The urinary bladder is unremarkable. The uterus appears boggy and there is small volume pelvic free fluid. These findings could possibly be physiologic in a woman of this age and correlation with stage of menstrual cycle is recommended. There is no acute colonic abnormality or evidence of constipation. The appendix is normal. IMPRESSION: 1. No acute abnormality. - Medical Decision Making Patient is a 28-year-old female transverse with complaints of lower abdominal pain and chronic constipation and is now having nausea and vomiting. Potentially the patient's symptoms are consistent with a bowel obstruction and a CT was done to rule it out. A CT was done and was negative for acute findings. Patient will be given treatment for constipation. Patient instructed to a high-fiber diet. Patient's labs unremarkable. Patient stable for discharge. Patient discharged home. - Differential Diagnosis constipation, small bowel obstruction. Abdominal pain Critical care attestation.: If time is entered above; I have spent that time in minutes in the direct care of this critically ill patient, excluding procedure time. ED Disposition Clinical Impression: Chronic idiopathic constipation, Gastroenteritis Abdominal pain Qualifiers: Abdominal location: lower abdomen, unspecified Qualified Code(s): R10.30 - Lower abdominal pain, unspecified Constipation Qualifiers: Constipation type: slow transit constipation Qualified Code(s): K59.01 - Slow transit constipation Nausea & vomiting Qualifiers: Vomiting type: unspecified Vomiting Intractability: non-intractable Qualified Code(s): R11.2 - Nausea with vomiting, unspecified Disposition: TO HOME OR SELFCARE Is pt being admited?: No Does the pt Need Aspirin: No Condition: Stable Instructions: High Fiber Diet (ED), Gastroenteritis (ED), Acute Nausea and Vomiting (ED), Abdominal Pain (ED) Additional Instructions: patient to follow-up with primary care in 2-3 days. Patient to follow-up with development manager in 2-3 days. Patient to eat a high-fiber diet. Patient to return to ER condition worsens. Patient take Tylenol when necessary for pain. Patient to take meds as directed. Patient increase water. Patient to rest. Patient to eat a low-salt diet. Prescriptions: Magnesium Citrate [Citrate of Magnesia] 300 ml PO NOW #1 bottle Sennosides/Docusate Sodium [Senna Plus 8.6-50 mg Softgel] 1 each PO BID #30 caps ule Ondansetron [Zofran Odt] 4 mg PO Q8HR PRN #20 tab.rapdis PRN Reason: Nausea And Vomiting Referrals: JORDYN TITUS MD [Primary Care Provider] - 2-3 Days LADARIUS MEDINA MD [Staff Physician] - 2-3 Days Time of Disposition: 13:40
[2019-05-09 10:14] LABS: Alanine Aminotransferase 9 units/L (7-56); Albumin 4.7 g/dL (3.9-5); BUN/Creatinine Ratio 27; Blood Urea Nitrogen 19 mg/dL (7-17); Calcium 9.3 mg/dL (8.4-10.2); Hemolysis Index 11
[2019-05-09] MEDS ORDERED: KETOROLAC 30 MG/1 ML INJ IV ONE (11:04)
[2019-05-09] MEDS ORDERED: KETOROLAC 30 MG/1 ML INJ ONE (11:08)
--- NOTE | 2019-05-09 13:17 | Cat Scan Report ---
CT ABDOMEN AND PELVIS WITH CONTRAST HISTORY: abd pain. constipation and n/v. COMPARISON: None. TECHNIQUE: CT images of the abdomen and pelvis were obtained following administration of intravenous contrast. All CT scans at this location are performed using CT dose reduction for ALARA by means of automated exposure control. CONTRAST: 100 ml of intravenous contrast administered. FINDINGS: Lungs/bones: Lung bases are clear. No acute osseous abnormality. Abdomen/pelvis: The liver, gallbladder, spleen, pancreas, adrenals, kidneys, and proximal GI tract a ppear unremarkable. The urinary bladder is unremarkable. The uterus appears boggy and there is small volume pelvic free f luid. These findings could possibly be physiologic in a woman of this age and correlation with stage of menstrual cycle is recommended. There is no acute colonic abnormality or evidence of constipation. The appendix is normal. IMPRESSION: 1. No acute abnormality. Signer Name: Tyrone Whalen MD Signed: 05/09/2019 1:13 PM Workstation Name: [id number]
[2019-05-09 14:11] VITALS: BP 117/82
== END 2019-05-09 14:10 | disposition home or self-care (01) ==
LOC: ED 08:50
DX: K52.9 Noninfective gastroenteritis and colitis, unspecified (principal); K59.04 Chronic idiopathic constipation; R11.2 Nausea with vomiting, unspecified; Z88.8 Allergy status to other drugs, medicaments and biological substances; Z79.899 Other long term (current) drug therapy
CPT/HCPCS: 36415; 74177; 80053; 81001; 84703; 85025; 96374; 99284; J1885; Q9967

== ENCOUNTER 2019-06-13 15:54 | Emergency (ER) | payer SELFPAY ==
[2019-06-13 16:40] VITALS: BP 142/64
--- NOTE | 2019-06-13 18:42 | Event Note ---
ED Screening Note ED Screening Note: generalized abd pain states she has IBS N, mild vomiting no diarrhea constipation no fever no other PMHx no allergies to meds This initial assessment/diagnostic orders/clinical plan/treatment(s) is/are subject to change based on patients health status, clinical progression and re- assessment by fellow clinical providers in the ED. Further treatment and workup at subsequent clinical providers discretion. Patient/guardian urged not to elope from the ED as their condition may be serious if not clinically assessed and managed. Initial orders include: labs, UA
[2019-06-13 19:46] LABS: Alanine Aminotransferase 10 units/L (7-56); Albumin 4.4 g/dL (3.9-5); BUN/Creatinine Ratio 24; Blood Urea Nitrogen 12 mg/dL (7-17); Calcium 9.1 mg/dL (8.4-10.2); Hemolysis Index 13
[2019-06-13 19:50] LABS: Basophils # (Auto) 0.1 K/mm3 (0.0-0.1); Basophils % (Auto) 0.7 % (0.0-1.8); Eosinophils # (Auto) 0.1 K/mm3 (0.0-0.4); Eosinophils % (Auto) 1.1 % (0.0-4.3); Hematocrit 38.5 % (30.3-42.9); Hemoglobin 12.3 gm/dl (10.1-14.3); Lymphocytes # (Auto) 3.5 K/mm3 (1.2-5.4); Lymphocytes % (Auto) 37.1 % (13.4-35.0); Mean Corpuscular HGB Conc 32 % (30-34); Mean Corpuscular Volume 78 fl (79-97); Monocytes # (Auto) 0.6 K/mm3 (0.0-0.8); Monocytes % (Auto) 6.2 % (0.0-7.3); Platelet Count 220 K/mm3 (140-440); Red Blood Count 4.95 M/mm3 (3.65-5.03); Red Cell Distribution Width 14.8 % (13.2-15.2)
[2019-06-13 21:16] LABS: Bilirubin,Urine NEG (Negative); Blood,Urine MOD (Negative); Color,Urine Yellow (Yellow); Mucus,Urine FEW /HPF; Protein,Urine <15 mg/dL mg/dL (Negative); Urobilinogen,Urine < 2.0 mg/dL (<2.0)
== END 2019-06-13 19:00 | disposition left against medical advice (07) ==
LOC: ED 15:54
DX: R10.9 Unspecified abdominal pain (principal); Z53.21 Procedure and treatment not carried out due to patient leaving prior to being seen by health care provider
CPT/HCPCS: 36415; 80053; 81001; 83690; 84702; 85025

== ENCOUNTER 2019-09-13 18:21 | Emergency (ER) | payer OTHER ==
[2019-09-13] MEDS ORDERED: ACETAMINOPHEN 500 MG TAB PO ONE (18:51)
[2019-09-13] MEDS ORDERED: SODIUM CHLORIDE 0.9% 1000 ML 1,000 ML IV ONE (18:51)
[2019-09-13] MEDS ORDERED: ONDANSETRON 4 MG/2 ML INJ IV ONE (18:51)
--- NOTE | 2019-09-13 19:03 | Emergency Department Report ---
ED Fever HPI - General Chief Complaint: Fever Stated Complaint: FEVER, POSS CORVID 19 EXPOSURE Time Seen by Provider: 09/13/19 18:36 - History of Present Illness Initial Comments: Patient is a 28-year-old female presents emergency room with complaints of a fever that began yesterday. She has associated generalized body aches, chest discomfort, back discomfort, shortness of breath. she states she had two episodes of vomiting this morning. She denies any productive cough, chills, diarrhea, sore throat, ear pain, leg swelling, urinary sx. She denies any recent travel. 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 She denies any past medical history or allergies to medications. She states that she took her last Depo shot in March and has not had a cycle since then. ED Review of Systems ROS: Stated complaint: FEVER, POSS CORVID 19 EXPOSURE Other details as noted in HPI Comment: All other systems reviewed and negative ED Past Medical Hx - Past Medical History Previous Medical History?: Yes Hx Hypertension: Yes (HTN during ) Hx Heart Attack/AMI: No Hx Congestive Heart Failure: No Hx Diabetes: No Hx Deep Vein Thrombosis: No Hx Renal Disease: No Hx Sickle Cell Disease: No Hx Seizures: No Hx Asthma: No Hx COPD: No Hx HIV: No Additional medical history: Viral meningitis - Surgical History Past Surgical History?: Yes Additional Surgical History: Lumbar puncture - Social History Smoking Status: Never Smoker Substance Use Type: None - Medications Home Medications: Home Medications Medication Instructions Recorded Confirmed Last Taken Type DOXYCYCLINE Hyclate [Vibramycin 100 mg PO Q12HR #20 capsule 07/02/16 07/08/16 07/07/16 Rx CAP] traMADoL [Ultram] 50 mg PO Q6HR PRN #14 tablet 07/02/16 07/08/16 07/07/16 Rx HYDROcodone/APAP 7.5-325 [Luck 1 each PO Q8HR PRN #12 tablet 07/08/16 Unknown Rx 7.5-325 mg TAB] Ondansetron [Zofran TAB] 4 mg PO Q8HR PRN #14 tablet 07/08/16 Unknown Rx Metoclopramide HCl [Reglan TAB] 5 mg PO TIDAC PRN #12 tablet 07/20/17 Unknown Rx Naproxen [Naprosyn TAB] 500 mg PO BID PRN #30 tablet 07/20/17 Unknown Rx Ciprofloxacin HCl [Cipro] 500 mg PO Q12HR 10 Days #20 tablet 09/23/17 Unknown Rx Magnesium Citrate [Citrate of 300 ml PO NOW #1 bottle 05/09/19 Unknown Rx Magnesia] Ondansetron [Zofran Odt] 4 mg PO Q8HR PRN #20 tab.rapdis 05/09/19 Unknown Rx Sennosides/Docusate Sodium [Senna 1 each PO BID #30 capsule 05/09/19 Unknown Rx Plus 8.6-50 mg Softgel] Albuterol Sulfate [Proventil Hfa] 6.7 gm IH TID PRN #1 hfa.aer.ad 09/13/19 Unknown Rx Azithromycin [Zithromax TAB] 250 mg PO QDAY 5 Days #6 tablet 09/13/19 Unknown Rx HYDROcodone/APAP 5-325 [[place]uck 1 each PO Q6HR PRN #7 tablet 09/13/19 Unknown Rx 5/325] Promethazine [Phenergan] 25 mg PO Q8HR PRN #10 tab 09/13/19 Unknown Rx ED Physical Exam - General Limitations: No Limitations General appearance: alert, in no apparent distress - Head Head exam: Present: atraumatic, normocephalic - Eye Eye exam: Present: normal appearance - ENT ENT exam: Present: normal orophraynx, mucous membranes moist - Respiratory Respiratory exam: Present: normal lung sounds bilaterally. Absent: respiratory distress, wheezes, rales, rhonchi, stridor, chest wall tenderness, accessory muscle use, decreased breath sounds, prolonged expiratory - Cardiovascular Cardiovascular Exam: Present: normal rhythm, tachycardia, normal heart sounds. Absent: systolic murmur, diastolic murmur, rubs, gallop - Neurological Exam Neurological exam: Present: alert, oriented X3 - Psychiatric Psychiatric exam: Present: normal affect, normal mood - Skin Skin exam: Present: warm, dry, intact ED Course Vital Signs 09/13/19 09/13/19 09/13/19 18:26 19:34 21:00 Temperature 100.4 F H 99.1 F Pulse Rate 114 H 82 Respiratory 18 18 18 Rate Blood Pressure 119/84 Blood Pressure 99/68 [Left] O2 Sat by Pulse 99 99 Oximetry ED Medical Decision Making - Lab Data Result diagrams: 09/13/19 19:05 09/13/19 19:05 Lab Results 09/13/19 09/13/19 09/13/19 Range/Units 19:05 19:05 19:05 WBC 7.3 (4.5-11.0) K/mm3 RBC 5.06 H (3.65-5.03) M/mm3 Hgb 12.6 (10.1-14.3) gm/dl Hct 39.0 (30.3-42.9) % MCV 77 L (79-97) fl MCH 25 L (28-32) pg MCHC 32 (30-34) % RDW 14.2 (13.2-15.2) % Plt Count 238 (140-440) K/mm3 Lymph % (Auto) 6.2 L (13.4-35.0) % [place] % (Auto) 4.4 (0.0-7.3) % Eos % (Auto) 0.3 (0.0-4.3) % Baso % (Auto) 2.0 H (0.0-1.8) % Lymph # 0.5 L (1.2-5.4) K/mm3 [place] # 0.3 (0.0-0.8) K/mm3 Eos # 0.0 (0.0-0.4) K/mm3 Baso # 0.1 (0.0-0.1) K/mm3 Seg Neutrophils % 87.1 H (40.0-70.0) % Seg Neutrophils # 6.4 (1.8-7.7) K/mm3 Sodium 133 L (137-145) mmol/L Potassium 3.7 (3.6-5.0) mmol/L Chloride 98.1 (98-107) mmol/L Carbon Dioxide 20 L (22-30) mmol/L Anion Gap 19 mmol/L BUN 11 (7-17) mg/dL Creatinine 0.6 L (0.7-1.2) mg/dL Estimated GFR > 60 ml/min BUN/Creatinine Ratio 18 % Glucose 87 (65-100) mg/dL Calcium 9.0 (8.4-10.2) mg/dL Total Bilirubin 0.50 (0.1-1.2) mg/dL AST 18 (5-40) units/L ALT 9 (7-56) units/L Alkaline Phosphatase 83 (35-129) units/L Total Protein 7.1 (6.3-8.2) g/dL Albumin 4.2 (3.9-5) g/dL Albumin/Globulin Ratio 1.4 % HCG, Quant < 2 (0-4) mIU/mL Urine Color (Yellow) Urine Turbidity (Clear) Urine pH (5.0-7.0) Ur Specific [place] (1.003-1.030) Urine Protein (Negative) mg/dL Urine Glucose (UA) (Negative) mg/dL Urine Ketones (Negative) mg/dL Urine Blood (Negative) Urine Nitrite (Negative) Urine Bilirubin (Negative) Urine Urobilinogen (<2.0) mg/dL Ur Leukocyte Esterase (Negative) Urine WBC (Auto) (0.0-6.0) /HPF Urine RBC (Auto) (0.0-6.0) /HPF U Epithel Cells (Auto) (0-13.0) /HPF Influenza A (Rapid) (Negative) Influenza B (Rapid) (Negative) 09/13/19 09/13/19 Range/Units 19:38 Unknown WBC (4.5-11.0) K/mm3 RBC (3.65-5.03) M/mm3 Hgb (10.1-14.3) gm/dl Hct (30.3-42.9) % MCV (79-97) fl MCH (28-32) pg MCHC (30-34) % RDW (13.2-15.2) % Plt Count (140-440) K/mm3 Lymph % (Auto) (13.4-35.0) % [place] % (Auto) (0.0-7.3) % Eos % (Auto) (0.0-4.3) % Baso % (Auto) (0.0-1.8) % Lymph # (1.2-5.4) K/mm3 [place] # (0.0-0.8) K/mm3 Eos # (0.0-0.4) K/mm3 Baso # (0.0-0.1) K/mm3 Seg Neutrophils % (40.0-70.0) % Seg Neutrophils # (1.8-7.7) K/mm3 Sodium (137-145) mmol/L Potassium (3.6-5.0) mmol/L Chloride (98-107) mmol/L Carbon Dioxide (22-30) mmol/L Anion Gap mmol/L BUN (7-17) mg/dL Creatinine (0.7-1.2) mg/dL Estimated GFR ml/min BUN/Creatinine Ratio % Glucose (65-100) mg/dL Calcium (8.4-10.2) mg/dL Total Bilirubin (0.1-1.2) mg/dL AST (5-40) units/L ALT (7-56) units/L Alkaline Phosphatase (35-129) units/L Total Protein (6.3-8.2) g/dL Albumin (3.9-5) g/dL Albumin/Globulin Ratio % HCG, Quant (0-4) mIU/mL Urine Color Straw (Yellow) Urine Turbidity Clear (Clear) Urine pH 6.0 (5.0-7.0) Ur Specific [place] 1.004 (1.003-1.030) Urine Protein <15 mg/dl (Negative) mg/dL Urine Glucose (UA) Neg (Negative) mg/dL Urine Ketones Neg (Negative) mg/dL Urine Blood Neg (Negative) Urine Nitrite Neg (Negative) Urine Bilirubin Neg (Negative) Urine Urobilinogen < 2.0 (<2.0) mg/dL Ur Leukocyte Esterase Neg (Negative) Urine WBC (Auto) 1.0 (0.0-6.0) /HPF Urine RBC (Auto) 1.0 (0.0-6.0) /HPF U Epithel Cells (Auto) < 1.0 (0-13.0) /HPF Influenza A (Rapid) Negative (Negative) Influenza B (Rapid) Negative (Negative) Vital Signs 09/13/19 09/13/19 09/13/19 18:26 19:34 21:00 Temperature 100.4 F H 99.1 F Pulse Rate 114 H 82 Respiratory 18 18 18 Rate Blood Pressure 119/84 Blood Pressure 99/68 [Left] O2 Sat by Pulse 99 99 Oximetry - Radiology Data Radiology results: report reviewed CHEST 1 VIEW INDICATION / CLINICAL INFORMATION: fever, sob. COMPARISON: None available. FINDINGS: SUPPORT DEVICES: None. HEART / MEDIASTINUM: No significant abnormality. LUNGS / PLEURA: No significant pulmonary or pleural abnormality. No pneumothorax. ADDITIONAL FINDINGS: No significant additional findings. IMPRESSION: No acute pulmonary or pleural abnormality Signer Name: Sanford Schulte MD FACR Signed: 09/13/2019 8:39 PM Workstation Name: [id number] Transcribed By: MS Dictated By: Sanford Schulte MD Electronically Authenticated By: Sanford Schulte MD Signed Date/Time: 09/13/192038 DD/ 37 TD/TT: - Medical Decision Making Patient is a 28-year-old female presents emergency room with complaints of a fever that began yesterday. She has associated generalized body aches, chest discomfort, back discomfort, shortness of breath. she states she had two episodes of vomiting this morning. She denies any productive cough, chills, diarrhea, sore throat, ear pain, leg swelling, urinary sx. She denies any recent travel. 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 She denies any past medical history or allergies to medications. She states that she took her last Depo shot in March and has not had a cycle since then. Vitals with elevated temperature and heart rate which improved to normal upon Tylenol administration. On exam tachycardia otherwise no abnormality as documented in chart. Breath sounds are clear bilaterally, no wheezing, no rales, no rhonchi, no respiratory distress. Labs with lymphocytopenia and mild dehydration. UA is within normal limits. Rapid influenza is negative. Chest x-ray with no acute process. Symptoms and examination consistent with viral illness. Patient has had no recent travel and no known sick contacts with COVID. Patient given prescription for azithromycin, albuterol, Luck, Phenergan. Discussed with patient to self isolate for 2 weeks, patient given paperwork on COVID, discussed strict return precautions with patient. advised pt Please take medication as prescribed. Increase your water intake. May take Tylenol as needed for fever. Please do not drive or operate heavy machinery while taking pain medication. Follow-up with a primary care doctor. Return to the emergency room immediately for any new or worsening symptoms including but not limited to worsening shortness of breath, difficulty breathing, high fevers despite Tylenol, unable to tolerate by mouth intake, etc. please self quarantine for 2 weeks. Please do not go out in public. Wash your hands frequently. If you have to cough or sneeze please do so in a napkin and then wash your hands immediately. Wear a mask if you are at home around other people might try to avoid others as much as possible. - Differential Diagnosis URI, PNA, bronchitis, influenza, viral syndrome Critical care attestation.: If time is entered above; I have spent that time in minutes in the direct care of this critically ill patient, excluding procedure time. ED Disposition Clinical Impression: Generalized body aches, SOB (shortness of breath), Lymphocytopenia Fever Qualifiers: Fever type: unspecified Qualified Code(s): R50.9 - Fever, unspecified Nausea & vomiting Qualifiers: Vomiting type: unspecified Vomiting Intractability: non-intractable Qualified Code(s): R11.2 - Nausea with vomiting, unspecified Disposition: DC-01 TO HOME OR SELFCARE Is pt being admited?: No Does the pt Need Aspirin: No Condition: Stable Instructions: COVID-19, Viral Syndrome (ED) Additional Instructions: Please take medication as prescribed. Increase your water intake. May take Tylenol as needed for fever. Please do not drive or operate heavy machinery while taking pain medication. Follow-up with a primary care doctor. Return to the emergency room immediately for any new or worsening symptoms including but not limited to worsening shortness of breath, difficulty breathing, high fevers despite Tylenol, unable to tolerate by mouth intake, etc. please self quarantine for 2 weeks. Please do not go out in public. Wash your hands frequently. If you have to cough or sneeze please do so in a napkin and then wash your hands immediately. Wear a mask if you are at home around other people might try to avoid others as much as possible. Prescriptions: HYDROcodone/APAP 5-325 [Luck 5/325] 1 each PO Q6HR PRN #7 tablet PRN Reason: Pain , Severe (7-10) Promethazine [Phenergan] 25 mg PO Q8HR PRN #10 tab PRN Reason: Nausea And Vomiting Albuterol Sulfate [Proventil Hfa] 6.7 gm IH TID PRN #1 hfa.aer.ad PRN Reason: Shortness Of Breath Azithromycin [Zithromax TAB] 250 mg PO QDAY 5 Days #6 tablet Referrals: JUAN MANUEL WOODS JR, MD [Primary Care Provider] - 2-3 Days [facility] [Provider Group] - 2-3 Days [facility] [Provider Group] - 2-3 Days CONNER MUELLER MD [Staff Physician] - 2-3 Days Forms: Work/School Release Form(ED) Time of Disposition: 20:57 Print Language: HAITIAN
[2019-09-13 19:40] LABS: Basophils # (Auto) 0.1 K/mm3 (0.0-0.1); Eosinophils % (Auto) 0.3 % (0.0-4.3); Hemoglobin 12.6 gm/dl (10.1-14.3); Lymphocytes # (Auto) 0.5 K/mm3 (1.2-5.4); Lymphocytes % (Auto) 6.2 % (13.4-35.0); Mean Corpuscular HGB Conc 32 % (30-34); Mean Corpuscular Volume 77 fl (79-97); Monocytes # (Auto) 0.3 K/mm3 (0.0-0.8); Monocytes % (Auto) 4.4 % (0.0-7.3); Platelet Count 238 K/mm3 (140-440); Red Blood Count 5.06 M/mm3 (3.65-5.03); Red Cell Distribution Width 14.2 % (13.2-15.2)
[2019-09-13] MEDS ORDERED: MORPHINE 4 MG/1 ML INJ IV ONE (19:44)
[2019-09-13 19:48] LABS: Bilirubin,Urine NEG (Negative); Blood,Urine NEG (Negative); Color,Urine Straw (Yellow); Protein,Urine <15 mg/dL mg/dL (Negative); Urobilinogen,Urine < 2.0 mg/dL (<2.0)
[2019-09-13 20:03] LABS: Alanine Aminotransferase 9 units/L (7-56); Albumin 4.2 g/dL (3.9-5); BUN/Creatinine Ratio 18; Blood Urea Nitrogen 11 mg/dL (7-17); Hemolysis Index 16
--- NOTE | 2019-09-13 20:43 | XRay Report ---
CHEST 1 VIEW INDICATION / CLINICAL INFORMATION: fever, sob. COMPARISON: None available. FINDINGS: SUPPORT DEVICES: None. HEART / MEDIASTINUM: No significant abnormality. LUNGS / PLEURA: No significant pulmonary or pleural abnormality. No pneumothorax. ADDITIONAL FINDINGS: No significant additional findings. IMPRESSION: No acute pulmonary or pleural abnormality Signer Name: Sanford Schulte MD FACR Signed: 09/13/2019 8:39 PM Workstation Name: [id number]
[2019-09-13 21:01] VITALS: BP 99/68
== END 2019-09-13 21:35 | disposition home or self-care (01) ==
LOC: ED 18:21
DX: R50.9 Fever, unspecified (principal); R11.2 Nausea with vomiting, unspecified; R06.02 Shortness of breath; R53.81 Other malaise; D72.810 Lymphocytopenia; I10 Essential (primary) hypertension; Z86.61 Personal history of infections of the central nervous system; Z79.2 Long term (current) use of antibiotics; Z79.899 Other long term (current) drug therapy; Z98.890 Other specified postprocedural states; Z88.8 Allergy status to other drugs, medicaments and biological substances
CPT/HCPCS: 36415; 71046; 80053; 81001; 84702; 85025; 87400; 96361; 96374; 96375; 99284; J2270; J2405; J7030

== ENCOUNTER 2020-07-14 18:28 | Emergency (ER) | payer OTHER ==
[2020-07-14 18:48] VITALS: BP 121/85
[2020-07-14] MEDS ORDERED: METOCLOPRAMIDE 10 MG/2 ML INJ IV ONE (18:49)
[2020-07-14] MEDS ORDERED: SODIUM CHLORIDE 0.9% 1000 ML 1,000 ML IV ONE (18:49)
--- NOTE | 2020-07-14 18:49 | Emergency Department Report ---
Blank Doc - Documentation Documentation: 29-year-old female presents emerged department complaining of hyperem esis gravidarum reemerging after a recent admission for similar. States for the last 2 days she has been vomiting more uncontrollably now she is feeling weak and lightheaded and presents to the ED for further treatment options This initial assessment/diagnostic orders/clinical plan/treatment(s) is/are subject to change based on patients health status, clinical progression and re- assessment by fellow clinical providers in the ED. Further treatment and workup at subsequent clinical providers discretion. Patient/guardian urged not to elope from the ED as their condition may be serious if not clinically assessed and managed. Initial orders include: Labs, IV for fluids and hyperemesis treatment
[2020-07-14] MEDS ORDERED: PYRIDOXINE 50 MG TAB PO STA (18:50)
[2020-07-14] MEDS ORDERED: diphenhydrAMINE 50 MG/ML VIAL IV STA (18:50)
[2020-07-14 19:21] LABS: Bilirubin,Urine NEG (Negative); Blood,Urine NEG (Negative); Color,Urine Yellow (Yellow); Mucus,Urine 1+ /HPF; Protein,Urine <15 mg/dL mg/dL (Negative)
[2020-07-14 19:23] LABS: Basophils % (Auto) 0.4 % (0.0-1.8); Eosinophils # (Auto) 0.1 K/mm3 (0.0-0.4); Eosinophils % (Auto) 0.7 % (0.0-4.3); Hematocrit 37.9 % (30.3-42.9); Hemoglobin 12.3 gm/dl (10.1-14.3); Lymphocytes # (Auto) 2.6 K/mm3 (1.2-5.4); Mean Corpuscular HGB Conc 33 % (30-34); Mean Corpuscular Volume 77 fl (79-97); Monocytes # (Auto) 0.6 K/mm3 (0.0-0.8); Monocytes % (Auto) 7.4 % (0.0-7.3); Platelet Count 300 K/mm3 (140-440); Red Blood Count 4.93 M/mm3 (3.65-5.03); Red Cell Distribution Width 14.4 % (13.2-15.2)
[2020-07-14 19:45] LABS: Alanine Aminotransferase 41 units/L (7-56); Albumin 4.3 g/dL (3.9-5); Blood Urea Nitrogen 11 mg/dL (7-17); Calcium 10.3 mg/dL (8.4-10.2); Hemolysis Index 0
[2020-07-14 19:52] LABS: BUN/Creatinine Ratio 28
--- NOTE | 2020-07-14 20:16 | Emergency Department Report ---
HPI - General Chief Complaint: Nausea/Vomiting/Diarrhea Time Seen by Provider: 07/14/20 19:55 - HPI HPI: This is a 29-year-old -O[place]i female presents to the emergency department with a complaint of persistent nausea and vomiting that has been goi ng on for the past few days. The patient is about 9 weeks . With this she is G5, P2 with 1 previous miscarriage and one previous stillbirth. She follows with [facility]IENT CARE COORDINATOR. The patient denies any abdominal or pelvic pain, vaginal bleeding, fever, back pain. The patient was admitted to [place] last week for what sounds like hyperemesis gravidarum. She was discharged home on some medications, the names of which she cannot currently remember, but says that did not work for her symptoms. No known alleviating factors. She says that the nausea and vomiting worsens when she tries to eat or drink anything. ED Past Medical Hx - Past Medical History Previous Medical History?: Yes Hx Hypertension: Yes (HTN during ) Hx Heart Attack/AMI: No Hx Congestive Heart Failure: No Hx Diabetes: No Hx Deep Vein Thrombosis: No Hx Renal Disease: No Hx Sickle Cell Disease: No Hx Seizures: No Hx Asthma: No Hx COPD: No Hx HIV: No Additional medical history: Viral meningitis - Surgical History Past Surgical History?: Yes Additional Surgical History: Lumbar puncture - Social History Smoking Status: Never Smoker Substance Use Type: None - Medications Home Medications: Home Medications Medication Instructions Recorded Confirmed Last Taken Type DOXYCYCLINE Hyclate [Vibramycin 100 mg PO Q12HR #20 capsule 07/02/16 07/08/16 07/07/16 Rx CAP] traMADoL [Ultram] 50 mg PO Q6HR PRN #14 tablet 07/02/16 07/08/16 07/07/16 Rx HYDROcodone/APAP 7.5-325 [[place] 1 each PO Q8HR PRN #12 tablet 07/08/16 Unknown Rx 7.5-325 mg TAB] Ondansetron [Zofran TAB] 4 mg PO Q8HR PRN #14 tablet 07/08/16 Unknown Rx Naproxen [Naprosyn TAB] 500 mg PO BID PRN #30 tablet 07/20/17 Unknown Rx Ciprofloxacin HCl [Cipro] 500 mg PO Q12HR 10 Days #20 tablet 09/23/17 Unknown Rx Magnesium Citrate [Citrate of 300 ml PO NOW #1 bottle 05/09/19 Unknown Rx Magnesia] Ondansetron [Zofran Odt] 4 mg PO Q8HR PRN #20 tab.rapdis 05/09/19 Unknown Rx Sennosides/Docusate Sodium [Senna 1 each PO BID #30 capsule 05/09/19 Unknown Rx Plus 8.6-50 mg Softgel] Albuterol Sulfate [Proventil Hfa] 6.7 gm IH TID PRN #1 hfa.aer.ad 09/13/19 Unknown Rx Azithromycin [Zithromax TAB] 250 mg PO QDAY 5 Days #6 tablet 09/13/19 Unknown Rx HYDROcodone/APAP 5-325 [[place] 1 each PO Q6HR PRN #7 tablet 09/13/19 Unknown Rx 5/325] Promethazine [Phenergan] 25 mg PO Q8HR PRN #10 tab 09/13/19 Unknown Rx Metoclopramide HCl [Reglan TAB] 5 mg PO Q8H PRN #14 tablet 07/14/20 Unknown Rx ED Review of Systems ROS: Stated complaint: , VOMITING CANNOT KEEP ANYTHING DOWN Other details as noted in HPI Comment: All other systems reviewed and negative Constitutional: denies: chills, fever Eyes: denies: eye pain, vision change ENT: denies: ear pain, throat pain Respiratory: denies: cough, shortness of breath Cardiovascular: denies: chest pain, palpitations Gastrointestinal: nausea, vomiting. denies: abdominal pain Genitourinary: denies: dysuria, discharge Musculoskeletal: denies: back pain, arthralgia Skin: denies: rash, lesions Neurological: denies: headache, weakness Physical Exam - Physical Exam Vital Signs: Vital Signs 07/14/20 18:41 Temperature 98.3 F Pulse Rate 94 H Respiratory 18 Rate Blood Pressure 121/85 O2 Sat by Pulse 97 Oximetry Physical Exam: GENERAL: The patient is well-developed well-nourished. HENT: Normocephalic. Atraumatic. Patient has moist mucous membranes. EYES: Extraocular motions are intact. NECK: Supple. Trachea is midline. CHEST/LUNGS: Clear to auscultation. There is no respiratory distress noted. HEART/CARDIOVASCULAR: Regular. There is no tachycardia. There is no murmur. ABDOMEN: Abdomen is soft, nontender. Patient has normal bowel sounds. There is no abdominal distention. SKIN: Skin is warm and dry. NEURO: The patient is awake, alert, and oriented. The patient is cooperative. The patient has no focal neurologic deficits. Normal speech. MUSCULOSKELETAL: There is no tenderness or deformity. There is no limitation range of motion. ED Course Vital Signs 07/14/20 18:41 Temperature 98.3 F Pulse Rate 94 H Respiratory 18 Rate Blood Pressure 121/85 O2 Sat by Pulse 97 Oximetry ED Medical Decision Making - Lab Data Result diagrams: 07/14/20 18:53 07/14/20 18:53 Lab Results 07/14/20 07/14/20 07/14/20 Range/Units 18:53 18:53 18:53 WBC 8.4 (4.5-11.0) K/mm3 RBC 4.93 (3.65-5.03) M/mm3 Hgb 12.3 (10.1-14.3) gm/dl Hct 37.9 (30.3-42.9) % MCV 77 L (79-97) fl MCH 25 L (28-32) pg MCHC 33 (30-34) % RDW 14.4 (13.2-15.2) % Plt Count 300 (140-440) K/mm3 Lymph % (Auto) 31.0 (13.4-35.0) % [place] % (Auto) 7.4 H (0.0-7.3) % Eos % (Auto) 0.7 (0.0-4.3) % Baso % (Auto) 0.4 (0.0-1.8) % Lymph # (Auto) 2.6 (1.2-5.4) K/mm3 [place] # (Auto) 0.6 (0.0-0.8) K/mm3 Eos # (Auto) 0.1 (0.0-0.4) K/mm3 Baso # (Auto) 0.0 (0.0-0.1) K/mm3 Seg Neutrophils % 60.5 (40.0-70.0) % Seg Neutrophils # 5.1 (1.8-7.7) K/mm3 Sodium 137 (137-145) mmol/L Potassium 4.0 (3.6-5.0) mmol/L Chloride 101.2 (98-107) mmol/L Carbon Dioxide 22 (22-30) mmol/L Anion Gap 18 mmol/L BUN 11 (7-17) mg/dL Creatinine 0.4 L (0.6-1.2) mg/dL Estimated GFR > 60 ml/min BUN/Creatinine Ratio 28 % Glucose 88 (65-100) mg/dL Calcium 10.3 H (8.4-10.2) mg/dL Total Bilirubin 0.20 (0.1-1.2) mg/dL AST 25 (5-40) units/L ALT 41 (7-56) units/L Alkaline Phosphatase 93 (35-129) units/L Total Protein 6.8 (6.3-8.2) g/dL Albumin 4.3 (3.9-5) g/dL Albumin/Globulin Ratio 1.7 % Lipase 43 (13-60) units/L HCG, Quant [id number] H (0-4) mIU/mL Urine Color (Yellow) Urine Turbidity (Clear) Urine pH (5.0-7.0) Ur Specific [place] (1.003-1.030) Urine Protein (Negative) mg/dL Urine Glucose (UA) (Negative) mg/dL Urine Ketones (Negative) mg/dL Urine Blood (Negative) Urine Nitrite (Negative) Urine Bilirubin (Negative) Urine Urobilinogen (<2.0) mg/dL Ur Leukocyte Esterase (Negative) Urine WBC (Auto) (0.0-6.0) /HPF Urine RBC (Auto) (0.0-6.0) /HPF U Epithel Cells (Auto) (0-13.0) /HPF Urine Mucus /HPF 07/14/20 Range/Units Unknown WBC (4.5-11.0) K/mm3 RBC (3.65-5.03) M/mm3 Hgb (10.1-14.3) gm/dl Hct (30.3-42.9) % MCV (79-97) fl MCH (28-32) pg MCHC (30-34) % RDW (13.2-15.2) % Plt Count (140-440) K/mm3 Lymph % (Auto) (13.4-35.0) % [place] % (Auto) (0.0-7.3) % Eos % (Auto) (0.0-4.3) % Baso % (Auto) (0.0-1.8) % Lymph # (Auto) (1.2-5.4) K/mm3 [place] # (Auto) (0.0-0.8) K/mm3 Eos # (Auto) (0.0-0.4) K/mm3 Baso # (Auto) (0.0-0.1) K/mm3 Seg Neutrophils % (40.0-70.0) % Seg Neutrophils # (1.8-7.7) K/mm3 Sodium (137-145) mmol/L Potassium (3.6-5.0) mmol/L Chloride (98-107) mmol/L Carbon Dioxide (22-30) mmol/L Anion Gap mmol/L BUN (7-17) mg/dL Creatinine (0.6-1.2) mg/dL Estimated GFR ml/min BUN/Creatinine Ratio % Glucose (65-100) mg/dL Calcium (8.4-10.2) mg/dL Total Bilirubin (0.1-1.2) mg/dL AST (5-40) units/L ALT (7-56) units/L Alkaline Phosphatase (35-129) units/L Total Protein (6.3-8.2) g/dL Albumin (3.9-5) g/dL Albumin/Globulin Ratio % Lipase (13-60) units/L HCG, Quant (0-4) mIU/mL Urine Color Yellow (Yellow) Urine Turbidity Slightly-cloudy (Clear) Urine pH 6.0 (5.0-7.0) Ur Specific [place] 1.020 (1.003-1.030) Urine Protein <15 mg/dl (Negative) mg/dL Urine Glucose (UA) Neg (Negative) mg/dL Urine Ketones 20 (Negative) mg/dL Urine Blood Neg (Negative) Urine Nitrite Neg (Negative) Urine Bilirubin Neg (Negative) Urine Urobilinogen 4.0 (<2.0) mg/dL Ur Leukocyte Esterase Tr (Negative) Urine WBC (Auto) 2.0 (0.0-6.0) /HPF Urine RBC (Auto) 1.0 (0.0-6.0) /HPF U Epithel Cells (Auto) 8.0 (0-13.0) /HPF Urine Mucus 1+ /HPF - Medical Decision Making This patient presents to the emergency department with a complaint of a few days of nausea and vomiting while . The patient recently required admission for hyperemesis gravidarum. Labs are mostly unremarkable. There is some mild dehydration with 20 ketones in the urine, but no signs of infection or any renal insufficiency. Patient was given some IV fluid resuscitation and antiemetics. Upon reevaluation she is feeling improved and was able to pass an oral challenge. Vital signs reassuring throughout ED course including being afebrile. The patient did not have any complaints of abdominal or pelvic pain, vaginal bleeding. She has good outpatient follow-up with [facility] PATIENT CARE COORDINATOR. She will return to the emergency department with any worsening of her symptoms or with any acute distress. Critical Care Time: No Critical care attestation.: If time is entered above; I have spent that time in minutes in the direct care of this critically ill patient, excluding procedure time. ED Disposition Clinical Impression: Nausea and vomiting during , Dehydration Disposition: DC-01 TO HOME OR SELFCARE Is pt being admited?: No Condition: Stable Instructions: Hyperemesis Gravidarum, Dehydration, Adult Additional Instructions: Please follow-up with your PATIENT CARE COORDINATOR in the next few days. Increase your oral rehydration. Return to the emergency department with any worsening of your symptoms, new or concerning symptoms not addressed during this current emergency department visit, or with any acute distress. Prescriptions: Metoclopramide HCl [Reglan TAB] 5 mg PO Q8H PRN #14 tablet PRN Reason: Nausea Referrals: [facility] [Provider Group] - 2-3 Days Time of Disposition: 20:59
[2020-07-14] MEDS ORDERED: FAMOTIDINE 20 MG/2 ML INJ IV ONE (20:56)
== END 2020-07-14 21:10 | disposition home or self-care (01) ==
LOC: ED 18:28
DX: O21.8 Other vomiting complicating pregnancy (principal); O26.891 Other specified pregnancy related conditions, first trimester; O16.1 Unspecified maternal hypertension, first trimester; E86.0 Dehydration; Z3A.01 Less than 8 weeks gestation of pregnancy; Z98.890 Other specified postprocedural states; Z88.8 Allergy status to other drugs, medicaments and biological substances
CPT/HCPCS: 36415; 80053; 81001; 83690; 84702; 85025; 96361; 96374; 96375; 99283; J1200; J2765; J7030

== ENCOUNTER 2021-01-27 14:00 | Inpatient (IN) | payer OTHER ==
[2021-01-31 12:12] VITALS: BP 113/74
== END 2021-01-31 18:15 | disposition home or self-care (01) | DRG 493 ==
LOC: ED 14:00 → 3B-SURG 16:04 → OBSVTOIN 01-28 09:03
PROVIDERS: ADMIT Internal Medicine; ATTEND Internal Medicine
PROC: 0QSK04Z Reposition Left Fibula with Internal Fixation Device, Open Approach (ICD-10-PCS; principal; 2021-01-28)
DX: S82.402A Unspecified fracture of shaft of left fibula, initial encounter for closed fracture (principal); E44.1 Mild protein-calorie malnutrition; S82.892B Other fracture of left lower leg, initial encounter for open fracture type I or II; Z68.1 Body mass index [BMI] 19.9 or less, adult; W13.3XXA Fall through floor, initial encounter; I10 Essential (primary) hypertension; J45.909 Unspecified asthma, uncomplicated; S82.62XA Displaced fracture of lateral malleolus of left fibula, initial encounter for closed fracture; Y93.89 Activity, other specified; Y92.89 Other specified places as the place of occurrence of the external cause; Y99.8 Other external cause status; Z88.1 Allergy status to other antibiotic agents; Z79.899 Other long term (current) drug therapy; Z79.891 Long term (current) use of opiate analgesic; Z79.01 Long term (current) use of anticoagulants
CPT/HCPCS: 36415; 72170; 80048; 80053; 82550; 83735; 84703; 85025; 85027; 85610; 86850; 86900; 86901; 90715; G0378; A4217; C1713; J0690; J1100; J1170; J1885; J2270; J2370; J2405; J2704; J3010; J7120

== ENCOUNTER 2021-04-21 11:38 | Outpatient (CLI) | payer OTHER ==
--- NOTE | 2021-04-21 14:51 | XRay Report ---
LEFT ANKLE 3 VIEW(S) INDICATION / CLINICAL INFORMATION: FRACTURE OF SHAFT OF LEFT FIBULA COMPARISON: 01/27/2021 FINDINGS: BONES / JOINT(S): Postoperative changes from open reduction internal fixation of distal fibular shaft fracture with screw and plate fixation in place. There is incomplete healing of the transverse fract ure of the distal fibula at current time. No evidence of hardware failure. Additional osseous screw t raverses the medial malleolus fracture with incomplete bony fusion at the current time. No acute osse ous abnormality is identified. No significant arthritis. SOFT TISSUES: Moderate soft tissue swelling about the left ankle. ADDITIONAL FINDINGS: None. Signer Name: Sergio Huizar MD Signed: 04/21/2021 2:47 PM Workstation Name: [id number]
== END 2021-04-21 11:39 | disposition home or self-care (01) ==
LOC: XRAY 11:38
PROVIDERS: ATTEND Orthopaedic Surgery
DX: S82.402D Unspecified fracture of shaft of left fibula, subsequent encounter for closed fracture with routine healing (principal); S82.402A Unspecified fracture of shaft of left fibula, initial encounter for closed fracture; S82.892A Other fracture of left lower leg, initial encounter for closed fracture; M79.89 Other specified soft tissue disorders; X58.XXXA Exposure to other specified factors, initial encounter; Y93.89 Activity, other specified; Y92.89 Other specified places as the place of occurrence of the external cause; Y99.8 Other external cause status

== ENCOUNTER 2021-08-01 16:28 | Outpatient (CLI) | payer OTHER ==
--- NOTE | 2021-08-01 23:54 | XRay Report ---
LEFT ANKLE 4 VIEW(S) INDICATION / CLINICAL INFORMATION: FRACTURE COMPARISON: Left ankle x-ray 04/21/2021 FINDINGS: BONES / JOINT(S): The lateral application of malleable plate and screws along the lower fibula appear s stable the previous fracture line less visible. The cannulated lag screw within the medial malleolu s is stable in position. Fracture line of the medial malleolus remains evident. Minimal lucency surro unds the tip of the lag screw. No significant arthritis. SOFT TISSUES: No significant abnormality. ADDITIONAL FINDINGS: None. IMPRESSION: Stable positioning of surgical hardware. The fibular fracture suggests minimal interval partial heali ng. The cannulated lag screw within the medial malleolus demonstrates lucency around the tip without sign ificant shift in position or hardware failure. Fracture line of the medial malleolus remains evident. Signer Name: Cooper Sanchez II, MD Signed: 08/01/2021 11:08 PM Workstation Name: [id number]
== END 2021-08-01 16:29 | disposition home or self-care (01) ==
LOC: XRAY 16:28
PROVIDERS: ATTEND Orthopaedic Surgery
DX: S82.402D Unspecified fracture of shaft of left fibula, subsequent encounter for closed fracture with routine healing (principal); X58.XXXD Exposure to other specified factors, subsequent encounter

== ENCOUNTER 2021-10-04 16:18 | Outpatient (CLI) | payer OTHER ==
--- NOTE | 2021-10-04 22:32 | XRay Report ---
LEFT ANKLE 3 VIEW(S) INDICATION / CLINICAL INFORMATION: S82.402D UNSPECIFIED FRACTURE OF SHAFT OF LEFT TIB/FIB COMPARISON: There are 2021 FINDINGS: BONES / JOINT(S): Postoperative changes from distal fibular and medial malleolus fixation are again d emonstrated and unchanged with reference examination. There is moderate soft tissue swelling about th e ankle joint. Proper anatomic alignment is again maintained. No acute osseous abnormality is identif ied on today's examination compared to reference exam from July 2021. SOFT TISSUES: Soft tissue swelling about the ankle joint. ADDITIONAL FINDINGS: None. Signer Name: Sergio Huizar MD Signed: 10/04/2021 10:28 PM Workstation Name: [id number]
== END 2021-10-04 16:19 | disposition home or self-care (01) ==
LOC: XRAY 16:18
PROVIDERS: ATTEND Orthopaedic Surgery
DX: S82.402D Unspecified fracture of shaft of left fibula, subsequent encounter for closed fracture with routine healing (principal); R22.42 Localized swelling, mass and lump, left lower limb; X58.XXXD Exposure to other specified factors, subsequent encounter

== ENCOUNTER 2022-01-02 13:39 | Outpatient (CLI) | payer OTHER ==
[2022-01-02 14:28] LABS: Basophils % (Auto) 0.4 % (0.0-1.8); Eosinophils # (Auto) 0.1 K/mm3 (0.0-0.4); Hematocrit 38.1 % (30.3-42.9); Hemoglobin 12.2 gm/dl (10.1-14.3); Lymphocytes # (Auto) 2.8 K/mm3 (1.2-5.4); Lymphocytes % (Auto) 34.8 % (13.4-35.0); Mean Corpuscular HGB Conc 32 % (30-34); Mean Corpuscular Volume 77 fl (79-97); Monocytes # (Auto) 0.5 K/mm3 (0.0-0.8); Monocytes % (Auto) 6.1 % (0.0-7.3); Platelet Count 305 K/mm3 (140-440); Red Blood Count 4.93 M/mm3 (3.65-5.03); Red Cell Distribution Width 15.6 % (13.2-15.2)
[2022-01-02 14:44] LABS: Erythrocyte Sedimentation Rate 4 mm/Hr (0-20)
--- NOTE | 2022-01-02 16:15 | XRay Report ---
LEFT ANKLE, 3 VIEWS INDICATION / CLINICAL INFORMATION: M19.072 OSTEOARTHRITIS LEFT ANKLE AND FOOT. COMPARISON: 10/04/2021, 08/01/2021 FINDINGS: Evidence of prior bilateral ORIF. Screw plate is present along the distal fibular diaphysis. A single screw is seen traversing the medial malleolus. All visualized hardware is intact. However, there is increasing lucency around the tip of the medial malleolar screw suggesting possible motion. The trans verse fracture through the medial malleolus remains visible suggesting possibility of nonunion. Mild to moderate degenerative changes seen throughout the ankle without focality. Alignment is grossl y anatomic. 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 IMPRESSION: 1. Prominent lucency around the tip of the medial malleolar screw suggesting possibility of motion. 2. Transverse fracture through the medial malleolus remains somewhat visible suggesting partial nonun ion. 3. Overall alignment remains anatomic. Signer Name: Zeenat King MD Signed: 01/02/2022 4:10 PM Workstation Name: [email or web address]
== END 2022-01-02 13:40 | disposition home or self-care (01) ==
LOC: XRAY 13:39
PROVIDERS: ATTEND Orthopaedic Surgery
DX: S82.52XA Displaced fracture of medial malleolus of left tibia, initial encounter for closed fracture (principal); M19.072 Primary osteoarthritis, left ankle and foot; X58.XXXA Exposure to other specified factors, initial encounter; Y93.89 Activity, other specified; Y92.89 Other specified places as the place of occurrence of the external cause; Y99.8 Other external cause status
CPT/HCPCS: 84550; 85025; 85652